=== PATIENT | female | born 1955 | race Caucasian/White ===

== ENCOUNTER 2020-03-25 15:46 | Outpatient (REF) | payer MEDICARE, MEDICAID, SELFPAY | END 2020-03-25 15:47 | disposition home or self-care (01) | LOC: HO.LAB 15:46 | PROVIDERS: PCP Internal Medicine Geriatric Medicine; Visit Provider Internal Medicine | DX: Z20.828 Contact with and (suspected) exposure to other viral communicable diseases (principal) | CPT/HCPCS: 36415; 87635 ==

== ENCOUNTER 2020-04-13 00:46 | Emergency (ER) | payer MEDICARE, MEDICAID, SELFPAY ==
--- NOTE | 2020-04-13 01:05 | ECG_ITS ---
Test Reason : HIGH PAT Blood Pressure : / mmHG Vent. Rate : 088 BPM Atrial Rate : 088 BPM P-R Int : 130 ms QRS Dur : 054 ms QT Int : 360 ms P-R-T Axes : 081 053 058 degrees QTc Int : 435 ms Normal sinus rhythm Low voltage QRS Otherwise normal ECG When compared with ECG of 11-JUL-2019 16:42, Vent. rate has increased BY 30 BPM Referred By: Rosanne Rosas Electronically Signed By:KHURRAM HUIZAR MD
[2020-04-13 01:07] VITALS: BP 145/73; PULSE 86; RESP 18; TEMP 36.9; O2SAT 99; BMI 26.7
--- NOTE | 2020-04-13 01:55 | ED_ITS ---
HPI - General Adult General Chief complaint: General Medical Stated complaint: ABNORMAL LABS Time Seen by Provider: 04/13/20 01:05 Source: patient Mode of arrival: ambulatory Limitations: no limitations History of Present Illness HPI narrative: had a routine labs today and was called to come to the hospital for high potassium, patient otherwise has no symptoms. Related Data Previous Rx's Medication Instructions Recorded dulaglutide 1.5 mg/0.5 mL 1.5 mg SUBCUT QWEEK 30 Days #2.5 ml 03/27/20 subcutaneous pen injector metformin 500 mg tablet,extended 500 mg PO BID 30 Days #60 tab 03/27/20 release 24 hr atorvastatin 40 mg tablet 40 mg PO BEDTIME 90 Days #90 tab 04/05/20 Allergies Allergy/AdvReac Type Severity Reaction Status Date / Time atorvastatin [Lipitor] Allergy Unknown Verified 07/28/19 00:00 citalopram [Celexa] Allergy Unknown Verified 07/28/19 00:00 From CELEXA Allergy Severe DIFFICULTY Uncoded 03/07/20 17:11 BREATHING From LIPITOR Allergy Intermediate HEADACHES Uncoded 03/07/20 17:11 Review of Systems Review of Systems: all other systems are reviewed and are negative Constitutional: Reports as per HPI and Reports no additional constitutional complaints Eyes: Reports as per HPI and Reports no additional eye complaints Reports system reviewed and no additional complaints, except as documented Cardiovascular: Reports as per HPI and Reports no additional cardiovascular complaints Respiratory: Reports as per HPI and Reports no additional respiratory complaints Gastrointestinal: Reports as per HPI and Reports no additional gastrointestinal complaints Genitourinary: Reports no additional female genitourinary complaints Musculoskeletal: Reports no additional musculoskeletal complaints Skin/Breast: Reports system reviewed and no additional complaints, except as docu Psychiatric: Reports no additional psychiatric complaints Endocrine: Reports no additional endocrine complaints Hematologic/Lymphatic: Reports no additional hematologic/lymphatic complaints Allergic/Immunologic: Reports no additional allergic/immunologic complaints Reports system reviewed and no additional complaints, except as documented and Reports Abnormal speech present [facility] Past Medical History Medical History Diabetes type 2, uncontrolled Dyslipidemia Social History Social History Advance Directives: No Advance Directives Information Provided: No Physical Exam Vital Signs: Vital Signs: Vital Signs Temp Pulse Resp BP Pulse Ox 04/13/20 04:44 98.0 F 99 16 132/81 99 04/13/20 01:07 98.5 F 86 18 145/73 H 99 Body Mass Index 26.7 vital signs have been reviewed as normal and appeared to be correct. hypertensive. Heart rate normal. Respiration rate normal. Temperature normal. Oxygen saturation normal. Appearance: Alert. Oriented X3. No acute distress. Head: Normal external exam. Normocephalic. Atraumatic. No Kumar signs noted. No raccoon eyes noted Eyes: PERRLA. EOMI. Conjunctiva and sclera normal. Eyelids normal. ENT: EAC normal. TM's Normal. Pharynx normal. Uvula midline. Moist mucous membranes. No trismus noted. No drooling noted. No muffled voice noted. Neck: Normal inspection. Neck supple. FROM. No adenopathy. Thyroid Normal. No meningeal signs. No neck mass noted. CVS: Normal heart rate and rhythm. Heart sound normal. No murmurs noted. Pulses normal throughout. Respiratory: No respiratory distress. Painless inspiration. Breath sounds normal. No wheezes/rales/rhonchi noted. Chest nontender. No accessory muscle usage noted or decreased air movement noted. Abdomen: Soft and nontender. Bowel sounds normal in all 4 quadrants. No distention noted. No organomegaly noted. No visible injury noted. Back: No CVA tenderness. Full range of motion noted. Skin: Skin warm and dry. Normal skin color. Normal skin turgor. No rashes/lesions/lacerations noted. Extremities: No lower extremity edema. Extremities exhibit normal range of motion. Extremities nontender. Neuro: Oriented X 3. No motor deficit. No sensory deficit. Reflexes normal. Course Course Course Narrative: 65 years old female with history of diabetes, and lupus presented with abnormal high potassium value in her routine blood workup. Patient otherwise has no symptoms. Recheck potassium, check EKG, cardiac monitoring, reassessment. Medical Decision Making MDM Narrative Medical decision making narrative: Assessment and plan. 65-year-old female presented with hyperkalemia. 1. no EKG changes indicated for hyperkalemia. 2. patient was given Kayexalate and 10 units of insulin ( patient also found to be hyperglycemic ) had repeat labs with normal value potassium. Patient was instructed to see her primary doctor in 2 days and recheck and potassium in 3-4 days. 3. insulin pump was deactivated while the patient in the ED patient was instructed to reactivate her palm for discharge. Lab Data Result diagrams: 04/13/20 04:43 04/13/20 04:43 Labs: Lab Results 04/13/20 04/13/20 04/13/20 Range/Units 01:27 03:28 04:43 WBC 9.5 (4.8-10.8) X10*3/uL RBC 4.58 (4.20-5.50) X10*6/uL Hgb 13.1 (12.0-16.0) g/dl Hct 40.1 (37-47) % MCV 87.6 (80-98) fL MCH 28.6 (27.0-33.0) pg MCHC 32.7 (31.0-35.0) g/dl RDW 14.1 (11.0-16.0) % Plt Count 248 (160-400) X10*3/uL MPV 11.6 (9.4-12.3) fL Immature Gran % (Auto) 0.4 (0.0-0.4) % Neut % (Auto) 47.8 (45-73) % Lymph % (Auto) 40.1 H (20-40) % [place] % (Auto) 9.3 (2-11) % Eos % (Auto) 1.4 (0-4) % Baso % (Auto) 1.0 (0-2) % Lymph # (Auto) 3.8 (1.2-4.9) X10*3/uL [place] # (Auto) 0.9 (0.1-1.2) X10*3/uL Eos # (Auto) 0.1 (0.0-0.4) X10*3/uL Baso # (Auto) 0.1 (0.0-0.2) X10*3/uL Abs Immat Gran (auto) 0.04 H (0.00-0.03) X10*3/uL Absolute Neuts (auto) 4.6 (2.0-8.3) X10*3/uL Absolute Nucleated RBC 0.000 (0.0-0.012) X10*3/uL Nucleated RBC % (auto) 0.0 (0.0-0.2) /100WBC Sodium 135 (135-145) mmol/L Potassium 5.9 H (3.3-5.1) mmol/l Chloride 99 (96-108) mmol/L Carbon Dioxide 26 (22-29) mmol/L Anion Gap 16 (12-20) BUN 17 H (9-16) mg/dL Creatinine 1.39 (0.5-1.4) mg/dL Estim Creat Clear Calc 33.7 Estimated GFR 38 Random Glucose 509 H* (60-115) mg/dL Calcium 9.8 (8.4-10.2) mg/dL Magnesium 1.9 (1.6-2.6) mg/dL Total Bilirubin 0.3 (0.0-1.0) mg/dL Direct Bilirubin < 0.2 (0.0-0.5) mg/dL AST 14 (5-31) U/L ALT 13 (0-31) U/L Alkaline Phosphatase 78 (39-117) U/L Total Protein 6.5 (6.5-8.0) g/dL Albumin 3.9 (3.5-5.0) g/dL Lipase 43 (8-78) U/L Urine Color YELLOW Urine Appearance CLEAR Urine pH 6.0 (5.0-8.0) Ur Specific [place] 1.015 (1.005-1.025) Urine Protein NEG (NEG-TRACE) MG/DL Urine Glucose (UA) >=1000 H (NEG) MG/DL Urine Ketones NEG (NEG) MG/DL Urine Blood NEG (NEG) Urine Nitrite NEG (NEG) Ur Leukocyte Esterase TRACE H (NEG) Urine RBC 1-4 (0) /HPF Urine WBC 5-9 H (0-4) /HPF Ur Squamous Epith Cells 1+ /LPF Urine Bacteria 2+ /LPF 04/13/20 Range/Units 04:43 WBC (4.8-10.8) X10*3/uL RBC (4.20-5.50) X10*6/uL Hgb (12.0-16.0) g/dl Hct (37-47) % MCV (80-98) fL MCH (27.0-33.0) pg MCHC (31.0-35.0) g/dl RDW (11.0-16.0) % Plt Count (160-400) X10*3/uL MPV (9.4-12.3) fL Immature Gran % (Auto) (0.0-0.4) % Neut % (Auto) (45-73) % Lymph % (Auto) (20-40) % [place] % (Auto) (2-11) % Eos % (Auto) (0-4) % Baso % (Auto) (0-2) % Lymph # (Auto) (1.2-4.9) X10*3/uL [place] # (Auto) (0.1-1.2) X10*3/uL Eos # (Auto) (0.0-0.4) X10*3/uL Baso # (Auto) (0.0-0.2) X10*3/uL Abs Immat Gran (auto) (0.00-0.03) X10*3/uL Absolute Neuts (auto) (2.0-8.3) X10*3/uL Absolute Nucleated RBC (0.0-0.012) X10*3/uL Nucleated RBC % (auto) (0.0-0.2) /100WBC Sodium 141 (135-145) mmol/L Potassium 4.8 (3.3-5.1) mmol/l Chloride 105 (96-108) mmol/L Carbon Dioxide 26 (22-29) mmol/L Anion Gap 15 (12-20) BUN 16 (9-16) mg/dL Creatinine 1.27 (0.5-1.4) mg/dL Estim Creat Clear Calc 36.8 Estimated GFR 42 Random Glucose 206 H D (60-115) mg/dL Calcium 10.2 (8.4-10.2) mg/dL Magnesium (1.6-2.6) mg/dL Total Bilirubin (0.0-1.0) mg/dL Direct Bilirubin (0.0-0.5) mg/dL AST (5-31) U/L ALT (0-31) U/L Alkaline Phosphatase (39-117) U/L Total Protein (6.5-8.0) g/dL Albumin (3.5-5.0) g/dL Lipase (8-78) U/L Urine Color Urine Appearance Urine pH (5.0-8.0) Ur Specific [place] (1.005-1.025) Urine Protein (NEG-TRACE) MG/DL Urine Glucose (UA) (NEG) MG/DL Urine Ketones (NEG) MG/DL Urine Blood (NEG) Urine Nitrite (NEG) Ur Leukocyte Esterase (NEG) Urine RBC (0) /HPF Urine WBC (0-4) /HPF Ur Squamous Epith Cells /LPF Urine Bacteria /LPF ECG Data Interpretation: normal sinus rhythm at 88 beats per minutes, normal axis deviation, normal intervals, no ST -teach anus, no T-wave changes in particular no peaked T-wave indicated for hyperkalemia. Discharge Plan Discharge Clinical Impression: Acute hyperkalemia, Acute hyperglycemia Patient Disposition: Home, Self-Care Instructions: Hyperkalemia (ED) Additional Instructions: need to repeat potassium in 2-3 days. Prescriptions: No Action Trulicity 1.5 mg/0.5 mL pen injector 1.5 mg subcut QWEEK 30 Days Qty: 2.5 RF: 2 metformin 500 mg tablet extended release 24 hr 500 mg PO BID 30 Days Qty: 60 RF: 2 atorvastatin 40 mg tablet 40 mg PO BEDTIME 90 Days Qty: 90 RF: 1 Referrals: Name,MD Rob [Primary Care Provider] - 2 days ( Need to repeat potassium serum in 2-3 days.)
[2020-04-13 02:34] LABS: Alanine Aminotransferase 13 U/L (0-31); Albumin Level 3.9 g/dL (3.5-5.0); Alkaline Phosphatase 78 U/L (39-117); Anion Gap 16 (12-20); Aspartate Amino Transferase 14 U/L (5-31); Bilirubin Direct < 0.2 mg/dL (0.0-0.5); Bilirubin Total 0.3 mg/dL (0.0-1.0); Blood Urea Nitrogen 17 mg/dL (9-16); Calcium 9.8 mg/dL (8.4-10.2); Carbon Dioxide 26 mmol/L (22-29); Chloride 99 mmol/L (96-108); Creatinine Clr Calc Pharmacy 33.7; Estimated Glomerular Filt Rate 38; Glucose Random 509 mg/dL (60-115); Lipase 43 U/L (8-78); Magnesium 1.9 mg/dL (1.6-2.6); Potassium 5.9 mmol/l (3.3-5.1); Sodium 135 mmol/L (135-145); Total Protein 6.5 g/dL (6.5-8.0)
[2020-04-13] MEDS: Insulin Regular, Human 100 UNIT/ML 3 ML VIAL 10 UNIT IVPUSH (03:23)
[2020-04-13] MEDS: Sodium Polystyrene Sulfon/Sorb 15 GM/60 ML ORAL.SUSP 30 GM PO (03:23)
[2020-04-13] MEDS: 0.9 % Sodium Chloride 500 ML 1000 ML IV (03:24)
[2020-04-13 03:43] LABS: Glucose Urine UA >=1000 MG/DL (NEG); Leukocyte Esterase Urine TRACE (NEG); Nitrite Urine NEG (NEG); Specific Gravity - Urine 1.015 (1.005-1.025); Urine Blood NEG (NEG); Urine Ketones NEG (NEG); Urine Protein NEG (NEG-TRACE)
[2020-04-13 03:55] LABS: Appearance Urine CLEAR; Color Urine YELLOW
[2020-04-13 04:07] LABS: Bacteria Urine 2+ /LPF; Squamous Epithelial Cell Urine 1+ /LPF
[2020-04-13 04:44] VITALS: BP 132/81; PULSE 99; RESP 16; TEMP 36.7; O2SAT 99
[2020-04-13 04:50] LABS: MANUAL DIFF FLAG NO
[2020-04-13 04:51] LABS: Basophils Absolute Auto 0.1 X10*3/uL (0.0-0.2); Eosinophils Absolute Auto 0.1 X10*3/uL (0.0-0.4); Eosinophils Percent Auto 1.4 % (0-4); Hematocrit 40.1 % (37-47); Hemoglobin 13.1 g/dl (12.0-16.0); Imm Gran Abs Auto 0.04 X10*3/uL (0.00-0.03); Imm Gran Pct Auto 0.4 % (0.0-0.4); Lymphocytes Absolute Auto 3.8 X10*3/uL (1.2-4.9); Lymphocytes Percent Auto 40.1 % (20-40); Mean Corpuscular HGB Conc 32.7 g/dl (31.0-35.0); Mean Corpuscular Hemoglobin 28.6 pg (27.0-33.0); Mean Corpuscular Volume 87.6 fL (80-98); Mean Platelet Volume 11.6 fL (9.4-12.3); Monocytes Absolute Auto 0.9 X10*3/uL (0.1-1.2); Monocytes Percent Auto 9.3 % (2-11); Neutrophils Absolute Auto 4.6 X10*3/uL (2.0-8.3); Neutrophils Percent Auto 47.8 % (45-73); Platelet Count 248 X10*3/uL (160-400); Red Blood Count 4.58 X10*6/uL (4.20-5.50); Red Cell Distribution Width 14.1 % (11.0-16.0); White Blood Count 9.5 X10*3/uL (4.8-10.8)
[2020-04-13 05:20] LABS: Anion Gap 15 (12-20); Blood Urea Nitrogen 16 mg/dL (9-16); Calcium 10.2 mg/dL (8.4-10.2); Carbon Dioxide 26 mmol/L (22-29); Chloride 105 mmol/L (96-108); Creatinine Clr Calc Pharmacy 36.8; Estimated Glomerular Filt Rate 42; Glucose Random 206 mg/dL (60-115); Potassium 4.8 mmol/l (3.3-5.1); Sodium 141 mmol/L (135-145)
--- NOTE | 2020-04-13 05:39 | PC.NURSE ---
Pt has made 2-3 trips to the bathroom, reports diarrhea.
== END 2020-04-13 08:33 | disposition home or self-care (01) ==
PROVIDERS: Emergency Provider Emergency Medicine; PCP Internal Medicine Geriatric Medicine
DX: E87.5 Hyperkalemia (principal); E11.65 Type 2 diabetes mellitus with hyperglycemia; R79.89 Other specified abnormal findings of blood chemistry; Z79.899 Other long term (current) drug therapy; Z79.4 Long term (current) use of insulin
CPT/HCPCS: 36415; 80048; 80076; 81001; 83690; 83735; 85025; 87077; 87086; 87186; 93005; 96374; 99283; 99284

== ENCOUNTER → 2020-05-28 11:18 | Outpatient (BNVA) | payer MEDICARE, MEDICAID, SELFPAY | PROVIDERS: Visit Provider Internal Medicine Endocrinology, Diabetes & Metabolism | DX: Z13.89 Encounter for screening for other disorder (principal) | CPT/HCPCS: Q3014 ==

== ENCOUNTER → 2020-07-03 09:21 | Outpatient (BNVA) | payer MEDICARE, MEDICAID, SELFPAY | PROVIDERS: Visit Provider Internal Medicine Endocrinology, Diabetes & Metabolism | DX: Z13.89 Encounter for screening for other disorder (principal) | CPT/HCPCS: Q3014 ==

== ENCOUNTER → 2020-09-09 08:30 | Outpatient (BNVA) | payer MEDICARE, MEDICAID, SELFPAY | PROVIDERS: PCP Internal Medicine Geriatric Medicine; Visit Provider Internal Medicine Endocrinology, Diabetes & Metabolism | DX: E11.65 Type 2 diabetes mellitus with hyperglycemia (principal); E11.42 Type 2 diabetes mellitus with diabetic polyneuropathy; Z79.4 Long term (current) use of insulin; E78.5 Hyperlipidemia, unspecified; E53.8 Deficiency of other specified B group vitamins; E55.9 Vitamin D deficiency, unspecified; I10 Essential (primary) hypertension | CPT/HCPCS: 80053; 80061; 82607; 82947; 83721; 84439; 99212 ==

== ENCOUNTER 2020-09-09 09:27 | Outpatient (REF) | payer MEDICARE, MEDICAID, SELFPAY ==
[2020-09-09 14:28] LABS: Alanine Aminotransferase 10 U/L (0-31); Albumin Level 4.2 g/dL (3.5-5.0); Alkaline Phosphatase 64 U/L (39-117); Anion Gap 18 (12-20); Aspartate Amino Transferase 16 U/L (5-31); Bilirubin Total 0.3 mg/dL (0.0-1.0); Blood Urea Nitrogen 13 mg/dL (9-16); Calcium 9.3 mg/dL (8.4-10.2); Carbon Dioxide 23 mmol/L (22-29); Chloride 105 mmol/L (96-108); Cholesterol 264 mg/dL; Estimated Glomerular Filt Rate 43; Glucose Fasting 238 mg/dL (60-99); HDL Cholesterol 54 mg/dL; LDL Cholesterol Calculated 188 mg/dl; Potassium 5.6 mmol/L (3.3-5.1); Sodium 140 mmol/L (135-145); Total Protein 6.9 g/dL (6.5-8.0); Triglycerides 112 mg/dL
[2020-09-09 14:37] LABS: Creatinine Urine 113.11 mg/dL; Microalbum/Creatinine Ratio Ur 5.3 ug/mg cr
[2020-09-09 14:50] LABS: Free T4 (Free Thyroxine) 0.86 ng/dL (0.71-1.85)
[2020-09-09 14:52] LABS: Vitamin B12 210 pg/mL (200-900)
[2020-09-10 06:47] LABS: LDL Cholesterol Direct 195 mg/dL (<100)
== END 2020-09-09 09:28 | disposition home or self-care (01) ==
LOC: HO.10HDL 09:27
PROVIDERS: Visit Provider Internal Medicine Endocrinology, Diabetes & Metabolism
DX: E11.22 Type 2 diabetes mellitus with diabetic chronic kidney disease (principal); E11.65 Type 2 diabetes mellitus with hyperglycemia; N18.30 Chronic kidney disease, stage 3 unspecified
CPT/HCPCS: 36415; 80053; 80061; 82043; 82607; 83721; 84439; 84443

== ENCOUNTER 2020-09-24 15:22 | Outpatient (REF) | payer MEDICARE, MEDICAID, SELFPAY ==
[2020-09-24 17:21] LABS: Anion Gap 16 (12-20); Blood Urea Nitrogen 19 mg/dL (9-16); Calcium 9.5 mg/dL (8.4-10.2); Carbon Dioxide 25 mmol/L (22-29); Chloride 100 mmol/L (96-108); Estimated Glomerular Filt Rate 43; Glucose Random 353 mg/dL (60-115); Potassium 5.4 mmol/L (3.3-5.1); Sodium 136 mmol/L (135-145)
== END 2020-09-24 15:23 | disposition home or self-care (01) ==
LOC: HO.LAB 15:22
PROVIDERS: PCP Internal Medicine Geriatric Medicine; Visit Provider Internal Medicine Endocrinology, Diabetes & Metabolism
DX: N18.30 Chronic kidney disease, stage 3 unspecified (principal)
CPT/HCPCS: 36415; 80048

== ENCOUNTER → 2020-09-25 07:36 | Outpatient (BNVA) | payer MEDICARE, MEDICAID, SELFPAY | PROVIDERS: PCP Internal Medicine Geriatric Medicine; Visit Provider Internal Medicine Endocrinology, Diabetes & Metabolism | DX: Z13.89 Encounter for screening for other disorder (principal) | CPT/HCPCS: Q3014 ==

== ENCOUNTER → 2020-12-26 11:20 | Outpatient (BNVA) | payer MEDICARE, MEDICAID, SELFPAY | PROVIDERS: PCP Internal Medicine Geriatric Medicine; Visit Provider Internal Medicine Endocrinology, Diabetes & Metabolism | DX: Z13.89 Encounter for screening for other disorder (principal) | CPT/HCPCS: 82947; 99212 ==

== ENCOUNTER 2020-12-26 12:27 | Emergency (ER) | payer MEDICARE, MEDICAID, SELFPAY ==
--- NOTE | ~2020-12-26 | XR_ITS ---
EXAMINATION: XR CHEST CLINICAL INFORMATION: Hyperglycemia COMPARISON: February 23, 2017 TECHNIQUE: AP portable view of the chest was obtained. FINDINGS: No significant abnormality is noted involving the heart, lungs, mediastinum, bony thorax or soft tissues. There appear to be some calcified right paratracheal lymph nodes. XR/XR chest 1V IMPRESSION: No acute disease.
[2020-12-26 12:49] VITALS: BP 136/69; PULSE 81; RESP 19; TEMP 36.6; O2SAT 98; BMI 26.5
--- NOTE | 2020-12-26 13:05 | ECG_ITS ---
Test Reason : GEN MED Blood Pressure : / mmHG Vent. Rate : 078 BPM Atrial Rate : 078 BPM P-R Int : 118 ms QRS Dur : 068 ms QT Int : 408 ms P-R-T Axes : 070 050 066 degrees QTc Int : 465 ms Normal sinus rhythm Normal ECG When compared with ECG of 13-APR-2020 01:20, No significant change was found Referred By: Lucila Wise Electronically Signed By:SHERRILL ARROYO
[2020-12-26] MEDS: 0.9 % Sodium Chloride 1,000 ML 999 ML IVCONT ×2 (13:20→14:04)
[2020-12-26 13:36] LABS: Glucose, Whole Blood > 600 mg/dL (60-115)
[2020-12-26 13:37] LABS: MANUAL DIFF FLAG NO
[2020-12-26 13:38] LABS: Basophils Absolute Auto 0.1 X10*3/uL (0.0-0.2); Basophils Percent Auto 0.9 % (0-2); Eosinophils Absolute Auto 0.3 X10*3/uL (0.0-0.4); Eosinophils Percent Auto 2.8 % (0-4); Hematocrit 40.3 % (37-47); Hemoglobin 13.7 g/dl (12.0-16.0); Imm Gran Abs Auto 0.03 X10*3/uL (0.00-0.03); Imm Gran Pct Auto 0.3 % (0.0-0.4); Lymphocytes Absolute Auto 2.5 X10*3/uL (1.2-4.9); Lymphocytes Percent Auto 23.7 % (20-40); Mean Corpuscular Hemoglobin 29.2 pg (27.0-33.0); Mean Corpuscular Volume 85.9 fL (80-98); Mean Platelet Volume 12.2 fL (9.4-12.3); Monocytes Absolute Auto 0.6 X10*3/uL (0.1-1.2); Neutrophils Absolute Auto 7.1 X10*3/uL (2.0-8.3); Neutrophils Percent Auto 66.3 % (45-73); Platelet Count 220 X10*3/uL (160-400); Red Blood Count 4.69 X10*6/uL (4.20-5.50); Red Cell Distribution Width 11.9 % (11.0-16.0); White Blood Count 10.6 X10*3/uL (4.8-10.8)
[2020-12-26 13:43] VITALS: BP 138/75; PULSE 77; RESP 16; O2SAT 98
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
[2020-12-26 13:58] LABS: Acetone, serum QL Negative (Negative)
[2020-12-26] MEDS: traMADoL HCL 50 MG TABLET PO (14:03)
[2020-12-26] MEDS: Acetaminophen 325 MG TABLET 975 MG PO (14:03)
[2020-12-26 14:07] LABS: Magnesium 2.1 mg/dL (1.6-2.6)
[2020-12-26 14:14] LABS: Alanine Aminotransferase 10 U/L (0-31); Albumin Level 4.4 g/dL (3.5-5.0); Alkaline Phosphatase 97 U/L (39-117); Anion Gap 20 (12-20); Aspartate Amino Transferase 12 U/L (5-31); Bilirubin Total 0.3 mg/dL (0.0-1.0); Blood Urea Nitrogen 23 mg/dL (9-16); Calcium 10.5 mg/dL (8.4-10.2); Carbon Dioxide 24 mmol/L (22-29); Chloride 90 mmol/L (96-108); Creatinine Clr Calc Pharmacy 26.4; Estimated Glomerular Filt Rate 29; Glucose Random 662 mg/dL (60-115); Potassium 4.7 mmol/L (3.3-5.1); Sodium 129 mmol/L (135-145); Total Protein 7.7 g/dL (6.5-8.0)
[2020-12-26] MEDS: Insulin Regular, Human 100 UNIT/ML 3 ML VIAL 12 UNIT IVPUSH (14:58)
[2020-12-26 15:20] VITALS: BP 125/76; PULSE 86; RESP 16; O2SAT 97
[2020-12-26 15:26] LABS: Glucose, Whole Blood 417 mg/dL (60-115)
[2020-12-26 16:00] VITALS: BP 138/72; PULSE 75; RESP 16; TEMP 36.6; O2SAT 99
[2020-12-26 17:02] LABS: Glucose Urine UA >=1000 MG/DL (NEG); Leukocyte Esterase Urine 1+ (NEG); Nitrite Urine POS (NEG); UACC Culture Trigger YES; Urine Blood 2+ (NEG); Urine Ketones NEG (NEG); Urine Protein NEG (NEG-TRACE)
[2020-12-26 17:03] LABS: Appearance Urine HAZY; Color Urine YELLOW
[2020-12-26 17:31] LABS: Glucose, Whole Blood 199 mg/dL (60-115)
[2020-12-26 17:33] LABS: Bacteria Urine 2+ /LPF; Mucus Urine 2+ /LPF; Squamous Epithelial Cell Urine 2+ /LPF; WBC Urine 50-75 /HPF (0-4)
[2020-12-26 17:39] LABS: Anion Gap 14 (12-20); Blood Urea Nitrogen 20 mg/dL (9-16); Calcium 8.6 mg/dL (8.4-10.2); Carbon Dioxide 24 mmol/L (22-29); Chloride 103 mmol/L (96-108); Creatinine Clr Calc Pharmacy 39.4; Estimated Glomerular Filt Rate 46; Glucose Random 236 mg/dL (60-115); Potassium 3.7 mmol/L (3.3-5.1); Sodium 137 mmol/L (135-145)
[2020-12-26 17:57] VITALS: BP 152/90; PULSE 81; RESP 16; TEMP 36.6; O2SAT 99
[2020-12-26 18:02] LABS: Glucose, Whole Blood 240 mg/dL (60-115)
== END 2020-12-26 18:15 | disposition home or self-care (01) ==
PROVIDERS: Physician Assistant Medical; Psychiatry & Neurology Psychiatry; Emergency Provider Emergency Medicine; PCP Internal Medicine Geriatric Medicine
DX: E11.65 Type 2 diabetes mellitus with hyperglycemia (principal); N17.9 Acute kidney failure, unspecified; E87.1 Hypo-osmolality and hyponatremia; I12.9 Hypertensive chronic kidney disease with stage 1 through stage 4 chronic kidney disease, or unspecified chronic kidney disease; E11.22 Type 2 diabetes mellitus with diabetic chronic kidney disease; N18.30 Chronic kidney disease, stage 3 unspecified; J44.9 Chronic obstructive pulmonary disease, unspecified; Z79.82 Long term (current) use of aspirin; Z79.4 Long term (current) use of insulin; Z79.899 Other long term (current) drug therapy
CPT/HCPCS: 36415; 71045; 80048; 80053; 81001; 81003; 82009; 82947; 83735; 85025; 85610; 87086; 87088; 87186; 93005; 96361; 96374; 99212; 99285; 99291

== ENCOUNTER 2021-12-20 10:48 | Outpatient (REF) | payer OTHER, MEDICAID, SELFPAY ==
[2021-12-20 11:51] LABS: Anion Gap 13 (12-20); Blood Urea Nitrogen 18 mg/dL (9-16); Carbon Dioxide 29 mmol/L (22-29); Chloride 101 mmol/L (96-108); Cholesterol 295 mg/dL; Estimated Glomerular Filt Rate 49; Glucose Random 230 mg/dL (60-115); HDL Cholesterol 53 mg/dL; LDL Cholesterol Calculated 213 mg/dl; Potassium 5.5 mmol/L (3.3-5.1); Sodium 137 mmol/L (135-145); Triglycerides 145 mg/dL
[2021-12-20 12:13] LABS: Microalbumin Urine < 5.0 mg/L
== END 2021-12-20 10:49 | disposition home or self-care (01) ==
LOC: HO.LAB 10:48
PROVIDERS: PCP Internal Medicine Geriatric Medicine; Visit Provider Internal Medicine Endocrinology, Diabetes & Metabolism
DX: E11.65 Type 2 diabetes mellitus with hyperglycemia (principal)
CPT/HCPCS: 36415; 80048; 80061; 82043

== ENCOUNTER 2021-12-23 15:01 | Outpatient (REF) | payer OTHER, SELFPAY ==
[2021-12-23 16:04] LABS: Cholesterol 289 mg/dL; HDL Cholesterol 52 mg/dL; LDL Cholesterol Calculated 174 mg/dl; Potassium 5.1 mmol/L (3.3-5.1); Triglycerides 318 mg/dL
[2021-12-25 01:16] LABS: LDL Cholesterol Direct 201 mg/dL (<100)
== END 2021-12-23 15:02 | disposition home or self-care (01) ==
LOC: HO.LAB 15:01
PROVIDERS: Internal Medicine Endocrinology, Diabetes & Metabolism; PCP Internal Medicine Geriatric Medicine; Visit Provider Internal Medicine Endocrinology, Diabetes & Metabolism
DX: E78.5 Hyperlipidemia, unspecified (principal); N18.30 Chronic kidney disease, stage 3 unspecified
CPT/HCPCS: 36415; 80061; 83721; 84132

== ENCOUNTER → 2021-12-24 14:05 | Outpatient (BNVA) | payer OTHER, MEDICAID, SELFPAY | PROVIDERS: PCP Internal Medicine Geriatric Medicine; Visit Provider Internal Medicine Endocrinology, Diabetes & Metabolism | DX: E11.65 Type 2 diabetes mellitus with hyperglycemia (principal); E11.22 Type 2 diabetes mellitus with diabetic chronic kidney disease; N18.30 Chronic kidney disease, stage 3 unspecified; E11.42 Type 2 diabetes mellitus with diabetic polyneuropathy; Z79.4 Long term (current) use of insulin | CPT/HCPCS: 82947; 99212 ==

== ENCOUNTER → 2021-12-25 09:32 | Outpatient (BNVA) | payer OTHER, MEDICAID, SELFPAY | PROVIDERS: PCP Internal Medicine Geriatric Medicine; Visit Provider Dietitian, Registered | DX: E11.65 Type 2 diabetes mellitus with hyperglycemia (principal); Z71.3 Dietary counseling and surveillance | CPT/HCPCS: 97802 ==

== ENCOUNTER 2021-12-30 21:26 | Emergency (ER) | payer OTHER, MEDICAID, SELFPAY ==
--- NOTE | ~2021-12-30 | XR_ITS ---
EXAMINATION: XR RIBS, RIGHT CLINICAL INFORMATION: Fall with chest pain COMPARISON: Chest radiograph 10:21 PM 12/30/2021 TECHNIQUE: Single view chest with 3 additional views of the right ribs were obtained. FINDINGS: Lungs are clear. No consolidation, pneumothorax, or pleural effusion. The cardiomediastinal silhouette and pulmonary vasculature are normal. Degenerative changes are present lumbar spine. Ribs are intact. No fractures are identified. XR/XR ribs RT min 3V w CXR1V IMPRESSION: No acute intrathoracic disease. No rib fractures are seen.
--- NOTE | ~2021-12-30 | XR_ITS ---
EXAMINATION: XR WRIST, RIGHT CLINICAL INFORMATION: Fall COMPARISON: Right hand radiographs of 07/11/2019 TECHNIQUE: PA, lateral, and oblique views of the right wrist. FINDINGS: Healed fracture deformity of the distal radius, unchanged. No acute fracture or dislocation. Joint spaces at the wrist are maintained. Mild degenerative change at the first CMC joint with subchondral sclerosis and minimal osteophyte formation. Minimal soft tissue swelling along the dorsal wrist. XR/XR wrist RT 2V IMPRESSION: 1. No acute fracture or dislocation identified. 2. No fracture deformity of the distal radius.
--- NOTE | ~2021-12-30 | XR_ITS ---
EXAMINATION: XR CHEST CLINICAL INFORMATION: Fall COMPARISON: Chest x-ray 12/26/2020 TECHNIQUE: 2 views of the chest were obtained. FINDINGS: The lungs are clear. No airspace consolidation, pleural effusion, or pneumothorax. The cardiomediastinal silhouette is within normal limits. Small calcified right paratracheal lymph nodes redemonstrated. No acute osseous injury. XR/XR chest 2V IMPRESSION: No acute pulmonary process.
[2021-12-30 22:37] VITALS: BP 138/73; PULSE 101; RESP 20; TEMP 36.3; O2SAT 98; BMI 26.5
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
[2021-12-31] MEDS: traMADoL HCL 50 MG TABLET PO (00:52)
--- NOTE | 2021-12-31 00:53 | PC.NURSE ---
medicated per provider order.
== END 2021-12-31 01:03 | disposition home or self-care (01) ==
PROVIDERS: Emergency Provider Internal Medicine; PCP Internal Medicine Geriatric Medicine
DX: S69.91XA Unspecified injury of right wrist, hand and finger(s), initial encounter (principal); S20.211A Contusion of right front wall of thorax, initial encounter; R07.89 Other chest pain; I12.9 Hypertensive chronic kidney disease with stage 1 through stage 4 chronic kidney disease, or unspecified chronic kidney disease; E11.22 Type 2 diabetes mellitus with diabetic chronic kidney disease; N18.30 Chronic kidney disease, stage 3 unspecified; W01.0XXA Fall on same level from slipping, tripping and stumbling without subsequent striking against object, initial encounter; Y93.9 Activity, unspecified; Y92.9 Unspecified place or not applicable; Y99.9 Unspecified external cause status; Z79.4 Long term (current) use of insulin; Z79.899 Other long term (current) drug therapy; F17.200 Nicotine dependence, unspecified, uncomplicated; Z71.6 Tobacco abuse counseling
CPT/HCPCS: 29125; 71046; 71101; 71111; 73100; 99283

== ENCOUNTER → 2022-01-02 11:17 | Outpatient (BNVA) | payer MEDICARE, MEDICAID, SELFPAY | PROVIDERS: PCP Internal Medicine Geriatric Medicine; Visit Provider Orthopaedic Surgery | DX: M25.531 Pain in right wrist (principal) | CPT/HCPCS: 99202 ==

== ENCOUNTER 2022-01-17 01:26 | Emergency (ER) | payer OTHER, MEDICAID, SELFPAY ==
--- NOTE | ~2022-01-17 | XR_ITS ---
EXAMINATION: XR CHEST CLINICAL INFORMATION: Chest pain and shortness breath COMPARISON: 12/30/2021 TECHNIQUE: Frontal view of the chest was obtained. FINDINGS: Normal symmetric lung volumes. No parenchymal consolidation. No pleural effusion. No pneumothorax. Cardiomediastinal silhouette and pulmonary vascularity are within normal limits. Calcified right paratracheal lymph nodes redemonstrated. No acute osseous abnormalities. XR/XR chest 1V IMPRESSION: No acute findings
--- NOTE | 2022-01-17 01:28 | ECG_ITS ---
Test Reason : CHEST PAIN Blood Pressure : / mmHG Vent. Rate : 098 BPM Atrial Rate : 098 BPM P-R Int : 116 ms QRS Dur : 064 ms QT Int : 342 ms P-R-T Axes : 070 050 062 degrees QTc Int : 436 ms Normal sinus rhythm Low voltage QRS Borderline ECG No significant changes when compared with the previous EKG of 26 december 2020 Referred By: Generic ED Physician Electronically Signed By:SHERRILL ARROYO
[2022-01-17 01:32] VITALS: BP 128/68; PULSE 93; RESP 16; TEMP 37.3; O2SAT 99; BMI 26.5
[2022-01-17 01:46] LABS: Basophils Absolute Auto 0.1 X10*3/uL (0.0-0.2); Basophils Percent Auto 0.8 % (0-2); Eosinophils Absolute Auto 0.3 X10*3/uL (0.0-0.4); Eosinophils Percent Auto 2.4 % (0-4); Hematocrit 36.9 % (37.0-47.0); Imm Gran Abs Auto 0.03 X10*3/uL (0.00-0.03); Imm Gran Pct Auto 0.3 % (0.0-0.4); Lymphocytes Absolute Auto 3.1 X10*3/uL (1.2-4.9); Lymphocytes Percent Auto 26.7 % (20-40); MANUAL DIFF FLAG NO; Mean Corpuscular HGB Conc 32.5 g/dl (31.0-35.0); Mean Corpuscular Hemoglobin 28.8 pg (27.0-33.0); Mean Corpuscular Volume 88.5 fL (80.0-98.0); Mean Platelet Volume 10.9 fL (9.4-12.3); Monocytes Absolute Auto 0.8 X10*3/uL (0.1-1.2); Monocytes Percent Auto 7.3 % (2-11); Neutrophils Absolute Auto 7.2 x10*3/uL (2.0-8.3); Neutrophils Percent Auto 62.5 % (45-73); Platelet Count 248 X10*3/uL (160-400); Red Blood Count 4.17 X10*6/uL (4.20-5.50); Red Cell Distribution Width 13.2 % (11.0-16.0); White Blood Count 11.6 X10*3/uL (4.8-10.8)
[2022-01-17 02:03] LABS: Anion Gap 15 (12-20); Blood Urea Nitrogen 16 mg/dL (9-16); Calcium 9.3 mg/dL (8.4-10.2); Carbon Dioxide 27 mmol/L (22-29); Chloride 106 mmol/L (96-108); Creatinine Clr Calc Pharmacy 33.1; Estimated Glomerular Filt Rate 38; Glucose Random 70 mg/dL (60-115); Potassium 4.7 mmol/L (3.3-5.1); Sodium 143 mmol/L (135-145)
[2022-01-17 02:10] LABS: Troponin-I High Sensitivity < 3.5 ng/L (<3.5-17.0)
[2022-01-17 02:34] VITALS: BP 107/70; PULSE 91; RESP 13; O2SAT 98
[2022-01-17 04:00] VITALS: BP 139/88; PULSE 99; RESP 20; TEMP 36.7; O2SAT 97
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
[2022-01-17] MEDS: Ketorolac Tromethamine 60 MG/2 ML VIAL IM (06:27)
[2022-01-17 07:30] VITALS: PULSE 78; RESP 14; O2SAT 98
== END 2022-01-17 07:31 | disposition home or self-care (01) ==
PROVIDERS: Emergency Provider Emergency Medicine Emergency Medical Services
DX: M94.0 Chondrocostal junction syndrome [Tietze] (principal); E11.22 Type 2 diabetes mellitus with diabetic chronic kidney disease; I12.9 Hypertensive chronic kidney disease with stage 1 through stage 4 chronic kidney disease, or unspecified chronic kidney disease; N18.30 Chronic kidney disease, stage 3 unspecified; Z79.4 Long term (current) use of insulin; F17.200 Nicotine dependence, unspecified, uncomplicated
CPT/HCPCS: 36415; 71045; 80048; 84484; 85025; 93005; 96372; 99284; J1885

== ENCOUNTER 2022-01-21 08:19 | Outpatient (REF) | payer MEDICARE, OTHER, SELFPAY ==
--- NOTE | ~2022-01-21 | XR_ITS ---
EXAMINATION: XR WRIST, RIGHT CLINICAL INFORMATION: Pain. Recent fall, trauma COMPARISON: Radiographs right wrist 12/30/2021 TECHNIQUE: Right wrist is imaged in 4 views. FINDINGS: There is no acute or healing fracture, dislocation, destructive process. The ulnar variance is near neutral. There is probable small cysts radial side of the radius. No matrix mineralization. No periostitis. Pronator quadratus fat pad appears normal. No joint narrowing or erosive change or chondrocalcinosis. XR/XR wrist RT w scaphoid IMPRESSION: No acute or healing fracture, dislocation, or arthropathy.
== END 2022-01-21 08:20 | disposition home or self-care (01) ==
LOC: HO.HOSX 08:19
PROVIDERS: Visit Provider Orthopaedic Surgery
DX: M25.531 Pain in right wrist (principal); E11.42 Type 2 diabetes mellitus with diabetic polyneuropathy
CPT/HCPCS: 73110; 99211; 99212

== ENCOUNTER → 2022-02-12 12:32 | Outpatient (BNVA) | payer OTHER, MEDICAID, SELFPAY | PROVIDERS: PCP Internal Medicine Geriatric Medicine; Visit Provider Dietitian, Registered | DX: E11.65 Type 2 diabetes mellitus with hyperglycemia (principal); Z71.3 Dietary counseling and surveillance | CPT/HCPCS: 97803 ==

== ENCOUNTER → 2022-04-17 11:58 | Outpatient (BNVA) | payer OTHER, MEDICAID, SELFPAY | PROVIDERS: PCP Internal Medicine Geriatric Medicine; Visit Provider Dietitian, Registered | DX: E11.65 Type 2 diabetes mellitus with hyperglycemia (principal) | CPT/HCPCS: 97803 ==

== ENCOUNTER 2022-05-25 09:29 | Emergency (ER) | payer OTHER, MEDICAID, SELFPAY ==
--- NOTE | ~2022-05-25 | XR_ITS ---
EXAMINATION: XR CHEST CLINICAL INFORMATION: Cough COMPARISON: Chest radiographs 01/17/2022, 12/31/2021 TECHNIQUE: 2 views of the chest were obtained. FINDINGS: The lungs are clear. No airspace consolidation or groundglass opacity or effusion. The heart is normal in size. The vascularity is normal. No coarsening of the bronchiolar markings. The costophrenic sulci are clear. The hilar and mediastinal contours and visualized bony structures are unremarkable. XR/XR chest 2V IMPRESSION: Lungs clear.
[2022-05-25 09:39] VITALS: BP 140/70; PULSE 84
[2022-05-25 09:55] VITALS: BP 171/87; PULSE 82; RESP 16; TEMP 36.8; O2SAT 98; BMI 24.2
[2022-05-25 10:59] LABS: Hematocrit 41.8 % (37.0-47.0); Hemoglobin 14.1 g/dl (12.0-16.0); Mean Corpuscular HGB Conc 33.7 g/dl (31.0-35.0); Mean Corpuscular Hemoglobin 28.4 pg (27.0-33.0); Mean Corpuscular Volume 84.1 fL (80.0-98.0); Mean Platelet Volume 12.1 fL (9.4-12.3); Platelet Count 187 X10*3/uL (160-400); Red Blood Count 4.97 X10*6/uL (4.20-5.50); Red Cell Distribution Width 13.2 % (11.0-16.0); White Blood Count 9.6 X10*3/uL (4.8-10.8)
[2022-05-25 11:24] LABS: Alanine Aminotransferase 10 U/L (0-31); Alkaline Phosphatase 89 U/L (39-117); Anion Gap 14 (12-20); Aspartate Amino Transferase 9 U/L (5-31); Bilirubin Direct 0.2 mg/dL (0.0-0.5); Bilirubin Total 0.5 mg/dL (0.0-1.0); Blood Urea Nitrogen 17 mg/dL (9-16); Calcium 10.1 mg/dL (8.4-10.2); Carbon Dioxide 29 mmol/L (22-29); Chloride 100 mmol/L (96-108); Creatinine Clr Calc Pharmacy 33.9; Estimated Glomerular Filt Rate 42; Glucose Random 488 mg/dL (60-115); Lipase 22 U/L (8-78); Magnesium 1.6 mg/dL (1.6-2.6); Potassium 5.6 mmol/L (3.3-5.1); Sodium 137 mmol/L (135-145); Total Protein 6.7 g/dL (6.5-8.0)
[2022-05-25 11:26] LABS: IDNOW Serial# 9DB6401D; Influenza A Negative (Negative); Influenza B2 Negative (Negative)
[2022-05-25 11:31] LABS: COVID-19 Test Negative (Negative); IDNOW Serial# 55D5AD1C
[2022-05-25] MEDS: Insulin Lispro 100 UNIT/ML 3 ML VIAL SUBCUT (12:15)
[2022-05-25] MEDS: oxyCODONE HCl Immed Release 5 MG TABLET PO (12:15)
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
[2022-05-25 13:38] LABS: Glucose, Whole Blood 336 mg/dL (60-115)
--- NOTE | 2022-05-25 13:43 | PC.NURSE ---
pt refusing po kayexalate, sts itake it at home, ill do it later .
== END 2022-05-25 13:49 | disposition home or self-care (01) ==
PROVIDERS: Emergency Provider Emergency Medicine; PCP Internal Medicine Geriatric Medicine
DX: M54.16 Radiculopathy, lumbar region (principal); E87.5 Hyperkalemia; E11.65 Type 2 diabetes mellitus with hyperglycemia; Z20.822 Contact with and (suspected) exposure to COVID-19; E11.22 Type 2 diabetes mellitus with diabetic chronic kidney disease; I12.9 Hypertensive chronic kidney disease with stage 1 through stage 4 chronic kidney disease, or unspecified chronic kidney disease; N18.30 Chronic kidney disease, stage 3 unspecified; E78.5 Hyperlipidemia, unspecified; B19.20 Unspecified viral hepatitis C without hepatic coma; E53.8 Deficiency of other specified B group vitamins; Z79.4 Long term (current) use of insulin; Z79.02 Long term (current) use of antithrombotics/antiplatelets; Z79.82 Long term (current) use of aspirin; Z79.899 Other long term (current) drug therapy
CPT/HCPCS: 36415; 71046; 80048; 80076; 82947; 83690; 83735; 85027; 87502; 87635; 99284

== ENCOUNTER 2022-07-29 13:31 | Outpatient (REF) | payer OTHER, SELFPAY ==
--- NOTE | ~2022-07-29 | XR_ITS ---
EXAMINATION: XR lumbar spine 2-3V CLINICAL INFORMATION: Reason for Exam PAIN COMPARISON: None TECHNIQUE: 3 views of the lumbar spine FINDINGS: 5 nonrib-bearing lumbar-type vertebral bodies. Vertebral body heights are maintained. Rightward scoliosis of the lumbar spine. Mild multilevel degenerative disc disease with loss of disc space height, facet arthropathy and disc osteophyte complexes. This is worst at L5/S1 and L3/L4. Paravertebral soft tissues are unremarkable. XR/XR lumbar spine 2-3V IMPRESSION: 1. Moderate spondylosis of the lumbar spine, as above detailed. 2. No significant spondylolisthesis.
== END 2022-07-29 13:32 | disposition home or self-care (01) ==
LOC: HO.XRAY 13:31
PROVIDERS: PCP Internal Medicine Geriatric Medicine; Visit Provider Internal Medicine Geriatric Medicine
DX: M54.50 Low back pain, unspecified (principal); M79.604 Pain in right leg
CPT/HCPCS: 72100

== ENCOUNTER → 2022-08-11 14:44 | Outpatient (BNVA) | payer OTHER, SELFPAY | PROVIDERS: PCP Internal Medicine Geriatric Medicine; Visit Provider Internal Medicine Endocrinology, Diabetes & Metabolism | DX: E11.65 Type 2 diabetes mellitus with hyperglycemia (principal); E78.5 Hyperlipidemia, unspecified | CPT/HCPCS: 82947; 83036 ==

== ENCOUNTER 2022-10-07 12:49 | Outpatient (REF) | payer OTHER, SELFPAY ==
--- NOTE | ~2022-10-07 | MR_ITS ---
EXAMINATION: MR LUMBAR SPINE WITHOUT CONTRAST CLINICAL INFORMATION: Chronic low back pain with right-sided sciatica COMPARISON: Lumbar spine radiographs 07/29/2022 TECHNIQUE: MRI of the lumbar spine was obtained using routine sequences without contrast. FINDINGS: There is lumbar dextrocurvature, apex at L2-L3. Mild left lateral listhesis of L2 on L3. Draining of the normal lumbar lordosis. Trace grade 1 retrolisthesis of L3 on L4 and L4 on L5. There is mild chronic height loss of the L5 vertebral body with depression along the inferior endplate. Diffuse marrow signal heterogeneity. Focal fat deposition versus intraosseous hemangioma within the L3 vertebral body. Severe left eccentric L2-L3 and L3-L4, severe marginal L5-S1, and moderate to severe right eccentric L4-L5 disc height loss. Multilevel endplate irregularity/Schmorl's node formation and mixed type I/II Modic endplate changes spanning L2-L3 through L5-S1. Multilevel anterior osteophytic spurring is seen.There are multilevel degenerative changes with level by level detail as follows: L1-L2: Trace annular disc bulge without spinal canal or neural foraminal stenosis. L2-L3: Disc osteophyte complex eccentric to the right with prominent left ventrolateral disc osteophyte. Mild bilateral facet hypertrophy. Mild spinal canal stenosis and subarticular zone narrowing with mass effect upon the traversing right L3 and abutment along the traversing left L3 nerve roots. Mild bilateral neural foraminal stenosis. L3-L4: Left eccentric disc osteophyte complex with mild bilateral facet hypertrophy. Mild spinal canal stenosis and subarticular zone narrowing with abutment along the traversing left L4 nerve root and encroachment upon the traversing right L4 nerve root. The cauda equina nerve roots lie preferentially within the left aspect of the thecal sac. Mild left greater than right neural foraminal stenosis. L4-L5: Right eccentric disc osteophyte complex with inferiorly migrated central disc extrusion, moderate right and mild left facet arthrosis and ligamentum flavum thickening. 7 mm extracanalicular synovial cyst on the right projecting into the right paraspinal soft tissues. Mild to moderate right eccentric spinal canal stenosis with severe right subarticular zone stenosis and compression along the traversing right L5 nerve root. Milder left subarticular zone narrowing with abutment along the traversing left L5 nerve root. Asymmetric enlargement and T2/T2 hyperintensity along the traversing right L5 nerve root likely on the basis of compressive neuropathy. Severe right neural foraminal stenosis with compression of the exiting right L4 nerve root. Mild left neural foraminal stenosis. L5-S1: Right eccentric disc osteophyte complex with moderate right greater than left facet arthrosis. No spinal canal stenosis. Severe bilateral subarticular zone stenosis and compression along the traversing bilateral S1 nerve roots. Moderate to severe right and moderate left neural foraminal stenosis with mass effect along the exiting/extraforaminal right greater than left L5 nerve roots. The conus medullaris terminates at the level of T12-L1. The distal spinal cord is normal in appearance. . No epidural fluid collection, hematoma, or mass. There is mild fatty infiltration of the paraspinal musculature. Colonic diverticulosis. Left-sided renal cortical scarring. The abdominal aorta is normal in contour and caliber. Partially imaged degenerative changes of the right greater than left sacroiliac joints with osseous spurring and subchondral sclerosis. MR/MR lumbar spine wo con IMPRESSION: 1. Lumbar dextrocurvature with advanced multilevel lumbar spondylosis. 2. At L4-L5, there is mild to moderate right eccentric spinal canal stenosis and severe right subarticular zone stenosis with compression along the traversing right L5 nerve root. Asymmetric enlargement and signal abnormality of the traversing right L5 nerve root likely on the basis of compressive neuropathy. Severe right neural foraminal stenosis with compression of the exiting right L4 nerve root. 3. At L5-S1, severe bilateral subarticular zone stenosis and compression along the traversing bilateral S1 nerve roots. Moderate to severe right and moderate left neural foraminal stenosis with mass effect along the right greater than left exiting/extraforaminal L5 nerve roots.
== END 2022-10-07 12:50 | disposition home or self-care (01) ==
LOC: HO.MRI 12:49
PROVIDERS: PCP Internal Medicine Geriatric Medicine; Visit Provider Internal Medicine Geriatric Medicine
DX: M54.50 Low back pain, unspecified (principal); G89.29 Other chronic pain
CPT/HCPCS: 72148

== ENCOUNTER 2022-11-19 09:43 | Outpatient (REF) | payer OTHER, SELFPAY ==
[2022-11-19 11:55] LABS: Cholesterol 262 mg/dL; HDL Cholesterol 56 mg/dL; LDL Cholesterol Calculated 190 mg/dl; Triglycerides 83 mg/dL
== END 2022-11-19 09:44 | disposition home or self-care (01) ==
LOC: HO.LAB 09:43
PROVIDERS: PCP Internal Medicine Geriatric Medicine; Visit Provider Internal Medicine Endocrinology, Diabetes & Metabolism
DX: E78.5 Hyperlipidemia, unspecified (principal)
CPT/HCPCS: 36415; 80061

== ENCOUNTER 2022-12-11 14:56 | Emergency (ER) | payer OTHER, MEDICAID, SELFPAY ==
--- NOTE | ~2022-12-11 | US_ITS ---
EXAMINATION: NONINVASIVE ASSESSMENT OF THE ARTERIES OF BOTH LOWER EXTREMITIES INCLUDING BILATERAL LOWER EXTREMITY DUPLEX. CLINICAL INFORMATION: Discoloration of the toes COMPARISON: None TECHNIQUE: duplex Doppler techniques with wave form analysis and measurement of velocities in the common femoral, profunda femoral, superficial femoral, popliteal, tibial and peroneal arteries. The study was performed only at rest. FINDINGS: RIGHT LEG Common femoral artery: 131 cm/s, Multiphasic Profunda femoris artery: 89 cm/s, Multiphasic Superficial femoral artery (proximal): 112 cm/s, Multiphasic Superficial femoral artery (mid): 100 cm/s, Multiphasic Superficial femoral artery (distal): 111 cm/s, Multiphasic Proximal Popliteal artery: 89 cm/s, Multiphasic Mid posterior tibial artery: 21 cm/s, Multiphasic Peroneal artery: Flow reversal LEFT LEG: Common femoral artery: 142 cm/s, Multiphasic Profunda femoris artery: 176 cm/s, Multiphasic Superficial femoral artery (proximal): 41 cm/s, monophasic Superficial femoral artery (mid): 453 cm/s, monophasic Superficial femoral artery (distal): 34 cm/s, monophasic Proximal Popliteal artery: 47 cm/s, monophasic Mid posterior tibial artery: Not visualized Peroneal artery: Not visualized US/US arterial duplex LE BI IMPRESSION: 1. Hemodynamically significant stenosis (suspect severe) of the left mid superficial femoral artery. Consider CTA or MRA for further evaluation. 2. No hemodynamically significant stenosis in the right lower extremity.
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
[2022-12-11 15:22] VITALS: BP 145/88; PULSE 101; RESP 18; TEMP 36.7; O2SAT 98; BMI 22.8
[2022-12-11 15:44] LABS: MANUAL DIFF FLAG NO
[2022-12-11 15:48] LABS: Basophils Absolute Auto 0.1 X10*3/uL (0.0-0.2); Basophils Percent Auto 0.9 % (0-2); Eosinophils Absolute Auto 0.1 X10*3/uL (0.0-0.4); Eosinophils Percent Auto 0.4 % (0-4); Hematocrit 41.4 % (37.0-47.0); Hemoglobin 13.9 g/dl (12.0-16.0); Imm Gran Abs Auto 0.05 X10*3/uL (0.00-0.03); Imm Gran Pct Auto 0.4 % (0.0-0.4); Lymphocytes Absolute Auto 2.6 X10*3/uL (1.2-4.9); Mean Corpuscular HGB Conc 33.6 g/dl (31.0-35.0); Mean Corpuscular Hemoglobin 28.5 pg (27.0-33.0); Mean Corpuscular Volume 84.8 fL (80.0-98.0); Mean Platelet Volume 11.1 fL (9.4-12.3); Monocytes Percent Auto 7.1 % (2-11); Neutrophils Absolute Auto 9.9 x10*3/uL (2.0-8.3); Neutrophils Percent Auto 72.2 % (45-73); Platelet Count 185 X10*3/uL (160-400); Red Blood Count 4.88 X10*6/uL (4.20-5.50); Red Cell Distribution Width 12.9 % (11.0-16.0); White Blood Count 13.6 X10*3/uL (4.8-10.8)
[2022-12-11 16:26] LABS: Erythrocyte Sedimentation Rate 10 MM/HR (0-20)
[2022-12-11 20:00] VITALS: BP 155/88; PULSE 103; RESP 18; O2SAT 100
[2022-12-11 20:09] LABS: Alanine Aminotransferase 23 U/L (0-31); Albumin Level 4.1 g/dL (3.5-5.0); Alkaline Phosphatase 91 U/L (39-117); Anion Gap 20 (12-20); Aspartate Amino Transferase 72 U/L (5-31); Bilirubin Total 0.8 mg/dL (0.0-1.0); Blood Urea Nitrogen 19 mg/dL (9-16); C Reactive Protein 0.38 mg/dL (< or = 0.50); Calcium 10.5 mg/dL (8.4-10.2); Carbon Dioxide 24 mmol/L (22-29); Chloride 95 mmol/L (96-108); Creatinine Clr Calc Pharmacy 29.4; Estimated Glomerular Filt Rate 39; Glucose Random 510 mg/dL (60-115); Magnesium 1.7 mg/dL (1.6-2.6); Sodium 134 mmol/L (135-145); Total Protein 7.6 g/dL (6.5-8.0)
[2022-12-11] MEDS: Heparin Sodium,Porcine 5,000 UNIT/ML VIAL 4200 UNIT IVPUSH (21:12)
[2022-12-11] MEDS: Insulin Regular, Human 100 UNIT/ML 3 ML VIAL IVPUSH (21:18)
[2022-12-11 21:27] LABS: INTERNATIONAL NORM RATIO 0.9 (0.9-1.1); Prothrombin Time 10.8 SEC (10.0-13.1)
[2022-12-11 21:30] LABS: PTT Heparin Drip 26.8 SEC (53-77.9)
[2022-12-11] MEDS: 0.9 % Sodium Chloride 1,000 ML 999 ML IV (21:50)
[2022-12-11] MEDS: Heparin Sodium,Porcine/1/2NS 25,000 UNIT/250 ML IV.SOLN 7.35 UNIT IVCONT (21:54)
[2022-12-11 22:51] LABS: COVID-19 Test Negative (Negative); IDNOW Serial# 08D9AD1C
[2022-12-11 22:51] LABS: Glucose, Whole Blood 275 mg/dL (60-115)
--- NOTE | 2022-12-11 22:55 | MHC.EDTECH ---
VSS, POC and covid done. Patient resting quietly awaiting transfer
[2022-12-12] MEDS: Morphine Sulfate 4 MG/ML CARTRIDGE IVPUSH (00:02)
--- NOTE | 2022-12-12 00:04 | MHC.EDTECH ---
Callback from [facility] with bed assignment to M6 RM [address] Matta, Nurse to Nurse phone number [phone]
--- NOTE | 2022-12-12 00:13 | MHC.EDTECH ---
call out to gabriel for ALS transport to [facility], estimated time given was 29, if not sooner
--- NOTE | 2022-12-12 00:38 | PC.NURSE ---
Nurse to nurse report given to LETICIA Rosa at [facility]. Pt aware of plan of care.
== END 2022-12-12 00:38 | disposition short-term general hospital (02) ==
PROVIDERS: Physician Assistant; Physician Assistant Medical; Emergency Provider Internal Medicine; PCP Internal Medicine Geriatric Medicine
DX: R60.0 Localized edema (principal); I87.2 Venous insufficiency (chronic) (peripheral); E11.65 Type 2 diabetes mellitus with hyperglycemia; R10.2 Pelvic and perineal pain; Z79.4 Long term (current) use of insulin; Z20.822 Contact with and (suspected) exposure to COVID-19; Z20.828 Contact with and (suspected) exposure to other viral communicable diseases; Z79.899 Other long term (current) drug therapy
CPT/HCPCS: 36415; 80053; 82947; 83735; 85025; 85610; 85652; 85730; 86140; 87635; 93925; 96361; 96374; 96375; 99285; J1643; J2270

== ENCOUNTER → 2022-12-24 09:59 | Outpatient (BNVA) | payer OTHER, MEDICAID, SELFPAY | PROVIDERS: PCP Internal Medicine Geriatric Medicine; Visit Provider Surgery Vascular Surgery ==

== ENCOUNTER 2023-02-13 14:38 | Emergency (ER) | payer OTHER, SELFPAY ==
[2023-02-13] VITALS (7 sets, daily range): BP systolic 112–162; BP diastolic 72–96; PULSE 77–89; RESP 15–20; TEMP 36.7–37.2; O2SAT 96–100; BMI 22.6
--- NOTE | ~2023-02-13 | XR_ITS ---
EXAMINATION: XR CHEST CLINICAL INFORMATION: Cough COMPARISON: 05/25/2022 TECHNIQUE: Frontal view of the chest was obtained. FINDINGS: No significant abnormality is noted involving the heart, lungs, mediastinum, bony thorax or soft tissues. XR/XR chest 1V IMPRESSION: Unremarkable examination.
--- NOTE | ~2023-02-13 | CT_ITS ---
EXAMINATION: CT ANGIOGRAM HEAD CT ANGIOGRAM NECK CLINICAL INFORMATION: Cerebrovascular accident one month prior. Worsening right leg weakness. COMPARISON: CT head from 06/12/2019. TECHNIQUE: Initial noncontrast chemical plant operator imaging of the head and neck was performed. Noncontrast head CT was also performed. Test bolus sequences followed by intravenous administration 70 mL of Omnipaque 350. Helical imaging was performed in the axial plane from the aortic arch to the skull vertex. Delayed postcontrast imaging of the head was also performed. The data was processed at the ct scan special procedures technologist's workstation for generation of MIP sequences. Angled MIPs and volume rendered reformatted images were also generated at an offline 3D workstation. Stenoses are assessed in accordance with NASCET criteria unless otherwise indicated. This CT examination was performed using dose optimization techniques as appropriate, variously including the following: *Automated exposure control. *Adjustment of mA and/or kV according to patient size (this includes techniques or standardized protocols for targeted exams where dose is matched to indication/reason for exam; i.e. extremities or head). *Use of iterative reconstruction technique. DLP: 1929 mGy-cm FINDINGS: CT Head: There are regions of encephalomalacia within the left frontal lobe (including the left precentral gyrus) with associated cortical enhancement as may be seen with subacute infarcts. There is also a region of chronic appearing encephalomalacia within the left middle cerebellar peduncle volume loss. No additional loss of cabrera-white matter differentiation. No evidence of acute intracranial hemorrhage. A few foci of hypoattenuation in the periventricular and deep white matter are consistent with mild microangiopathy. The ventricles are normal in morphology and size. No evidence for obstructive hydrocephalus. No abnormal mass effect or midline shift. No extra-axial fluid collections. No additional pathologic intra-axial enhancement. No acute soft tissue or osseous abnormalities. Mild mucosal thickening of the paranasal sinuses. The mastoid air cells and middle ear cavities are clear. The patient is edentulous. CT Neck: The thyroid gland and remaining cervical soft tissues are within normal limits. Straightening of the normal cervical lordosis. Mild degenerative anterolisthesis of C4 on C5. Advanced degenerative disc disease at C5-C6 and C6-C7. [id number] degenerative disc disease at all additional cervical levels. Facet and uncovertebral joint arthropathy leads to osseous encroachment on the neural foramina from C4-C7. CT Upper Chest: The visualized lung apices and upper mediastinum are within normal limits. Neck CTA: Aortic Arch: Classic 3 vessel branching pattern of the aortic arch. Great Vessel Origins: No significant stenosis of the branch origins. Right Common Carotid Artery: No focal stenosis or occlusion. Cervical Right Internal Carotid Artery: Mixed fibrofatty and calcific atherosclerotic disease of the carotid bulb and proximal internal carotid artery causing less than 50% stenosis. Left Common Carotid Artery: No focal stenosis or occlusion. Cervical Left Internal Carotid Artery: Mixed fibrofatty and calcific atherosclerotic disease of the carotid bulb and proximal internal carotid artery causing less than 50% stenosis. Cervical Right Vertebral Artery: The right vertebral artery is hypoplastic with concomitant decrease in caliber the foramina transversarium. Atherosclerotic disease causes mild stenosis of the origin. No additional focal stenosis or occlusion. Cervical Left Vertebral Artery: Dominant. Atherosclerotic disease causes mild stenosis of the origin. No additional focal stenosis or occlusion. Brain CTA: Intracranial Internal Carotid Arteries: Multifocal mixed fibrofatty and calcific atherosclerotic disease of the intracranial internal carotid arteries without occlusion. There are moderate to high-grade stenoses of the lacerum and anatomic segments of the right ICA and cavernous segments of the left ICA. Right Anterior Cerebral Artery: Normal A1 segment. Normal opacification of the distal PALMIRA segments. Left Anterior Cerebral Artery: Normal A1 segment. Normal opacification of the distal PALMIRA segments. Anterior Communicating Artery: Normal. Right Middle Cerebral Artery: Normal M1 segment of the MCA without focal stenosis or occlusion. Normal arborization of the distal segments. Left Middle Cerebral Artery: Normal M1 segment of the MCA without focal stenosis or occlusion. Normal arborization of the distal segments. Right Vertebral Artery: The V4 segment largely terminates as the posterior inferior cerebellar artery. Left Vertebral Artery: Disc disease causes moderate stenosis of the V4 segment without occlusion. Normal opacification of the proximal segments of the posterior inferior cerebellar artery. Basilar Artery: Normal without focal stenosis or occlusion. Normal appearance of the proximal superior cerebellar arteries. Right Posterior Cerebral Artery: Normal P1 segment. Normal opacification of the distal TRAVEL REGISTERED NURSE PACU segments. Left Posterior Cerebral Artery: Atherosclerotic disease causes moderate stenoses of the P1 and P3 segments without proximal occlusion. Normal opacification of the superior sagittal, straight, transverse, and sigmoid sinuses. CT/CT angio head neck IMPRESSION: 1. There are regions of encephalomalacia within the left frontal lobe (including the left precentral gyrus) as may be seen with subacute infarcts. There is also a region of chronic appearing encephalomalacia within the left middle cerebellar peduncle. Mild underlying microangiopathy. 2. No evidence of acute intracranial hemorrhage. 3. CTA of the head and neck without proximal occlusion. 4. Atherosclerotic disease causes moderate to high-grade stenoses of the lacerum and anatomic segments of the right ICA and cavernous segments of the left ICA. There are moderate stenoses of the P1 and P3 segments of the left TRAVEL REGISTERED NURSE PACU. 5. Moderate multilevel degenerative spondyloarthropathy of the cervical spine.
--- NOTE | 2023-02-13 15:14 | PC.NURSE ---
patient a&ox3, noted rt leg weakness and rt arm weakness with rt arm drift, rt hand weak shirt maker, smile is symmetrical, pt stated her rt arm/leg weakness is not new and it has been this way since her recent stroke.
--- NOTE | 2023-02-13 15:35 | ECG_ITS ---
Test Reason : WEAKNESS Blood Pressure : / mmHG Vent. Rate : 077 BPM Atrial Rate : 077 BPM P-R Int : 118 ms QRS Dur : 068 ms QT Int : 366 ms P-R-T Axes : 017 056 069 degrees QTc Int : 414 ms Normal sinus rhythm Normal ECG When compared with ECG of 17-JAN-2022 01:32, No significant change was found Referred By: Augusta Busby Electronically Signed By:OTTO FRANCO
--- NOTE | 2023-02-13 15:41 | PC.NURSE ---
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 pt verbalizing no pain but an increase in weakness since this morning. pt reports numbness/tingling in lower extremities causing difficulty while ambulating. pt denies any other sx. call kate placed within reach.
[2023-02-13 16:08] LABS: MANUAL DIFF FLAG NO
--- NOTE | 2023-02-13 16:09 | MHC.EDTECH ---
THIS PCT ASSUMED CARE OF PT AT 1500 ,VITALS SIGN TAKEN , 2ND SETS OF BLOOD CULTURE DRAWN AND SENT TO LAB ,EKG ONE AND WAS READ BY PROVIDER .
[2023-02-13 16:11] LABS: Basophils Absolute Auto 0.1 X10*3/uL (0.0-0.2); Basophils Percent Auto 1.1 % (0-2); Eosinophils Absolute Auto 0.1 X10*3/uL (0.0-0.4); Eosinophils Percent Auto 1.2 % (0-4); Hematocrit 36.6 % (37.0-47.0); Hemoglobin 11.9 g/dl (12.0-16.0); Imm Gran Abs Auto 0.02 X10*3/uL (0.00-0.03); Imm Gran Pct Auto 0.2 % (0.0-0.4); Mean Corpuscular HGB Conc 32.5 g/dl (31.0-35.0); Mean Corpuscular Hemoglobin 27.3 pg (27.0-33.0); Mean Corpuscular Volume 83.9 fL (80.0-98.0); Monocytes Absolute Auto 0.6 X10*3/uL (0.1-1.2); Monocytes Percent Auto 6.8 % (2-11); Neutrophils Absolute Auto 4.6 x10*3/uL (2.0-8.3); Neutrophils Percent Auto 54.7 % (45-73); Platelet Count 195 X10*3/uL (160-400); Red Blood Count 4.36 X10*6/uL (4.20-5.50); Red Cell Distribution Width 12.1 % (11.0-16.0); White Blood Count 8.4 X10*3/uL (4.8-10.8)
[2023-02-13 16:17] LABS: INTERNATIONAL NORM RATIO 0.9 (0.9-1.1); Prothrombin Time 10.8 SEC (11.1-13.3)
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
[2023-02-13 16:26] LABS: Lactic Acid 2.4 mmol/L (0.5-2.0)
[2023-02-13 16:37] LABS: Troponin-I High Sensitivity < 2.7 ng/L (<3.5-17.0)
[2023-02-13 16:37] LABS: Bilirubin Total 0.4 mg/dL (0.0-1.0); Carbon Dioxide 23 mmol/L (22-29); Sodium 134 mmol/L (135-145)
--- NOTE | 2023-02-13 16:51 | MHC.EDTECH ---
PATIENT REPEATED CMP DRAWN AND URINE SAMPLE COLLECTED AND SENT TO LAB ,PT RESTING QUIETLY IN BED .
[2023-02-13 16:56] LABS: Appearance Urine Clear; Color Urine Yellow; Glucose Urine UA >=1000 mg/dL (Negative); Leukocyte Esterase Urine Moderate (2+) (Negative); Nitrite Urine Negative (Negative); UMIC TRIGGER UACC YES; Urine Blood Negative (Negative); Urine Ketones Negative (Negative); Urine Protein Negative (Neg-Trace)
[2023-02-13 17:00] LABS: Bacteria Urine None Seen (None Seen); Hyaline Casts Urine 0-2 /LPF (0-2); RBC Urine 0-2 /HPF (0-2); Squamous Epithelial Cell Urine 0-2 /HPF (0-2); UACC Culture Trigger YES
[2023-02-13 17:36] LABS: Alanine Aminotransferase 9 U/L (0-31); Albumin Level 3.6 g/dL (3.5-5.0); Alkaline Phosphatase 85 U/L (39-117); Anion Gap 15 (12-20); Aspartate Amino Transferase 15 U/L (5-31); Blood Urea Nitrogen 29 mg/dL (9-16); Calcium 9.5 mg/dL (8.4-10.2); Chloride 101 mmol/L (96-108); Creatinine Clr Calc Pharmacy 36.1; Estimated Glomerular Filt Rate 50; Potassium 4.7 mmol/L (3.3-5.1); Total Protein 6.6 g/dL (6.5-8.0)
--- NOTE | 2023-02-13 17:43 | PC.NURSE ---
pt transferred to CT - will administer medications when pt returns.
--- NOTE | 2023-02-13 17:45 | PC.NURSE ---
pt to ct scan
[2023-02-13] MEDS: iohexoL 350 MG/ML 100 ML INFUS..BTL IV (18:03)
[2023-02-13 18:06] LABS: Reflex Lactate? Lactic Acid Added
[2023-02-13] MEDS: cefTRIAXone sodium 1 GM in 0.9 % Sodium Chloride 50 ML IV (18:10)
[2023-02-13] MEDS: 0.9 % Sodium Chloride 1,000 ML 999 ML IVCONT (18:10)
[2023-02-13] MEDS: Insulin Regular, Human 100 UNIT/ML 3 ML VIAL IVPUSH (18:11)
--- NOTE | 2023-02-13 18:19 | PC.NURSE ---
pt returned from CT, medication and IVF hung and administered per provider order. pt resting comfortably with the call kate within reach.
--- NOTE | 2023-02-13 18:44 | MHC.EDTECH ---
PATIENT 2ND LACTIC DRAWN AND SENT TO LAB ,VITALS SIGN TAKEN ,PT WAS REPOSITION AND WARM BLANKET GIVEN ,PT DAUGHTER AT BEDSIDE .
[2023-02-13 19:00] LABS: ~Lactic Acid-LAB USE ONLY 1.6 mmol/L (0.5-2.0)
[2023-02-13 19:19] LABS: Glucose Random 368 mg/dL (60-115)
--- NOTE | 2023-02-13 19:37 | MHC.EDTECH ---
PT WAS INCONTINENT OF URINE ,CARE GIVEN AND BEDDING CHANGE ,PT RESTING QUIETLY IN BED ,PT DAUGHTER AT BEDSIDE ,VITALS SIGN TAKEN .
[2023-02-13 22:15] LABS: Glucose, Whole Blood 214 mg/dL (60-115)
--- NOTE | 2023-02-13 22:27 | MHC.EDTECH ---
PT ATE A PBJ SANDWICH AND DRANK A CAN OF KERA SHLOMO ,PT IS COMFORTABLE WATCHING TELEVISION .
[2023-02-14] VITALS: BP 153/80; PULSE 92; RESP 20; TEMP 36.7; O2SAT 98
--- NOTE | 2023-02-14 00:13 | MHC.EDTECH ---
0000 ROUNDING DONE ,VITALS SIGN TAKEN ,PT WAS REPOSITION ,WARM BLANKET GIVEN AND SOME JUICE ,PT IS COMFORTABLE RESTING QUIETLY .
[2023-02-14 01:43] VITALS: BP 174/99; PULSE 87; RESP 16; TEMP 36.2; O2SAT 98
--- NOTE | 2023-02-14 01:44 | MHC.EDTECH ---
0200 ROUNDING DONE ,VITALS SIGN TAKEN ,PT WAS INCONTINENT OF URINE ,CARE GIVEN ,BEDDING CHANGE ,WARM BLANKET GIVEN ,PT DRANK SOME WATER AND IS COMFORTABLE AT THIS TIME .
[2023-02-14 04:00] VITALS: BP 141/86; PULSE 79; RESP 16; TEMP 36.8; O2SAT 97
--- NOTE | 2023-02-14 04:14 | MHC.EDTECH ---
0400 ROUNDING DONE ,VITALS SIGN TAKEN ,PT AWAKE AND LAYING IN BED ,WARM BLANKET GIVEN .
[2023-02-14 06:00] VITALS: BP 167/90; PULSE 83; RESP 16; TEMP 36.9; O2SAT 98
--- NOTE | 2023-02-14 06:08 | MHC.EDTECH ---
0600 ROUNDING DONE ,VITALS SIGN TAKEN ,PT WAS REPOSITION AND BOOSTED UP IN BED ,PT IS DRY 350 ML URINE EMPTY FROM PURE WICK ,PT AWAKE AND COMFORTABLE IN BED ,DRANK SIPS OF WATER .
--- NOTE | 2023-02-14 09:35 | PHA.MEDREC ---
Pharmacy Consult ? Medication Reconciliation Pharmacy has completed the medication reconciliation. Spoke to patient to confirm meds (Faroese speaking).
[2023-02-14] MEDS: Omeprazole 20 MG CAPSULE.DR PO (10:26)
[2023-02-14] MEDS: Venlafaxine HCl ER 150 MG CAP.ER.24H 300 MG PO (10:26)
[2023-02-14 10:44] LABS: Glucose, Whole Blood 362 mg/dL (60-115)
[2023-02-14] MEDS: Hydroxychloroquine Sulfate 200 MG TABLET PO (11:29)
[2023-02-14] MEDS: Insulin Lispro 100 UNIT/ML 3 ML VIAL 10 UNIT SUBCUT (11:30)
[2023-02-14 11:56] VITALS: BP 130/61; PULSE 92; RESP 18; O2SAT 100
[2023-02-14] MEDS: traMADoL HCL 50 MG TABLET PO (12:27)
--- NOTE | 2023-02-14 13:41 | MHC.CM.PN ---
CM consult. Met with patient and dtr Kaylan [phone]
--- NOTE | 2023-02-14 13:44 | MHC.CM.PN ---
CM consult received. Met with patient and dtr Kaylan to discuss discharge. Preferences for [facility] were obtained and referrals were sent. [facility] accepted the patient for SN,PT and TURNTABLE ENGINEER. [facility] has been referred and a task was sent to [facility] options nuclear technician. A face 2 Face document has been sent to the [facility]. Patients family will provide transport home.
--- NOTE | 2023-02-14 14:42 | PC.NURSE ---
Rn Acute met with pt and family at bedside, outside referrals made, pt and family will follow up. family will provide transportation home.
== END 2023-02-14 14:45 | disposition home or self-care (01) ==
PROVIDERS: Student in an Organized Health Care Education/Training Program; Emergency Provider Emergency Medicine
DX: N39.0 Urinary tract infection, site not specified (principal); E11.65 Type 2 diabetes mellitus with hyperglycemia; R53.1 Weakness; I69.951 Hemiplegia and hemiparesis following unspecified cerebrovascular disease affecting right dominant side; E11.22 Type 2 diabetes mellitus with diabetic chronic kidney disease; I12.9 Hypertensive chronic kidney disease with stage 1 through stage 4 chronic kidney disease, or unspecified chronic kidney disease; N18.30 Chronic kidney disease, stage 3 unspecified; E78.5 Hyperlipidemia, unspecified; F17.210 Nicotine dependence, cigarettes, uncomplicated; J44.9 Chronic obstructive pulmonary disease, unspecified; Z79.4 Long term (current) use of insulin; Z79.899 Other long term (current) drug therapy; Z79.01 Long term (current) use of anticoagulants
CPT/HCPCS: 36415; 70496; 70498; 71045; 80053; 81001; 82947; 83605; 84484; 85025; 85610; 87040; 87086; 93005; 96365; 96366; 96375; 99285; J0696; Q9967

== ENCOUNTER 2024-06-30 14:45 | Outpatient (AMB) | payer MEDICARE, SELFPAY ==
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
[2024-06-30 14:51] VITALS: BP 122/78; PULSE 74
[2024-06-30 15:02] LABS: Glucose, Whole Blood 108 mg/dL (60-115)
== END 2024-06-30 15:22 | disposition home or self-care (01) ==
PROVIDERS: Visit Provider Nurse Practitioner Adult Health
DX: E11.65 Type 2 diabetes mellitus with hyperglycemia (principal)

== ENCOUNTER → 2024-06-30 14:45 | Outpatient (BNVA) | payer MEDICARE, SELFPAY | PROVIDERS: Visit Provider Nurse Practitioner Adult Health | DX: E11.65 Type 2 diabetes mellitus with hyperglycemia (principal) | CPT/HCPCS: 82947; 83036; 99202 ==

== ENCOUNTER 2024-11-22 14:44 | Outpatient (REF) | payer MEDICARE, SELFPAY ==
--- OUTSIDE RECORDS SUMMARY | 2024-11-22 14:47 | XMS_ITS | Encounter Summary ---
Author Organization [employer] Address [address] [place] [address] Care Team Providers Care Wig Dresser Name Role Phone Name, Rob IBARRA Primary Care Provider [phone] Reason for Visit * Reason Onset Date Comments Appointment Request 11/20/2024 Encounter Details Date Type Department Care Team ([facility] Contact Info) Description 11/20/2024 Telephone [facility] MED[facility]INE [address] [place], [place] [phone] Name, MD Rob [address] [place] [address] Appointment Request Social History Tobacco Use Types Packs/Day Years Used Date Smoking Tobacco: Every Day Cigarettes Alcohol Use Standard Drinks/Week Comments Never 0 (1 standard drink = 0.6 oz pur e alcohol) Depression Answer Date Recorded Patient Health Questionnaire-9 Score 23 06/18/2023 Patient Health Questionnaire-9 Score 23 06/18/2023 Last PHQ-9: Questionnaire Data Not on file 1 Housing Stability Answer Date Recorded What is your housing situation today? I have chasity snow 02/18/[address] you li ve. Do you have problems with any of the following? None of the above 02/18/2024 Food Insecurity Answer Date Recorded Within the past 12 months, y ou worried that your food would run out before you got money to buy more: Never True 02/18/2024 Within the past 12 months,th e food you bought just didn't last and you didn't have enough money to get more: Never True Transportation Answer Date Recorded In the past 12 months, has l ack of transportation kept you from medical appts, meetings, work or from getting things needed for daily living? I am not sure 02/18/2024 Utilities Answer Date Recorded In the past 12 months, has t he electric, gas, oil or water company threatened to shut off services in your home? No 02/18/2024 Depression Answer Date Recorded Patient Health Questionnaire-2 Score 5 10/27/2024 Internet Access Answer Date Recorded Internet Access Q1 Yes 02/18/2024 Internet Access Q2 Not on file 02/18/2024 Comments Unknown Sex and Gender Information Value Date Recorded Sex Assigned at Female 04/20/2022 10:17 AM EDT Legal Sex Female 10:17 AM EDT Gender Identity Female 04/20/2022 10:17 AM EDT Sexual Orientation Straight 04/20/2022 10 :17 AM EDT documented as of this encounter Miscellaneous Notes * Telephone Encounter - Karen Marin RN - 11/20/2024 1:53 PM EDT Return TC to Alicia George ENTERTAINMENT DIRECTOR RV rescheduled for 12/08/24 @ 2pm. * Telephone Encounter - Yvonne Schaeffer - 11/20/2024 1:45 PM EDT Tc from pt requesting to rescheduled appointment Appointment type - Telephone Visit Jania notes - ENTERTAINMENT DIRECTOR RV FD called @2:03 no answer lvm Provider - Karen Marin documented in this encounter Plan of Treatment Upcoming Encounters Date Type Department Care Team (Late st Contact Info) Description 12/06/2024 3:30 PM EDT Medication Management [facility] [address] [place] [phone] Camelia Eagle, PharmD [address] [place] [address] 12/08/2024 2:00 PM EDT Telemedicine [facility] [address] [place] [phone] Karen Marin, LETICIA 01/23/2025 11:00 AM EDT Office Visit [facility] [place] [address] Name, MD Rob [facility] [place] [address] documented as of this encounter Goals Goal Patient Goal Type Associated Problems Recent Progress Patient-Stated? Author Blood Pressure < 140/90 Blood Pressure 120/69(2024 2:16 PM EDT) No Shirley Cooper PharmD Note: Keep log of BP values to be reviewed at follow-up or sooner if needed. Take your medication every day Lifestyle No Shirley Cooper, Chacha documented as of this encounter Visit Diagnoses Not on filedocumented in this encounter Additional Health Concerns Assessment Noted Time PHQ-9 Depression Total Score: 23 023 11:06 AM EST documented as of this encounter Care Teams Wig Dresser Relationship Specialty Start Date End Date NameRob MD [facility] [place] [address] PCP - General Family Medicine 01/31/18 [facility] 09/18/24 documented as of this encounter
[2024-11-22 16:25] LABS: Anion Gap 16 (12-20); Blood Urea Nitrogen 24 mg/dL (9-16); Calcium 10.2 mg/dL (8.4-10.2); Carbon Dioxide 29 mmol/L (22-29); Chloride 101 mmol/L (96-108); Estimated Glomerular Filt Rate > 60; Glucose Random 328 mg/dL (60-115); Potassium 5.5 mmol/L (3.3-5.1); Sodium 140 mmol/L (135-145)
[2024-11-22 16:43] LABS: Creatinine Urine 45.81 mg/dL; Microalbum/Creatinine Ratio Ur 34.9 ug/mg cr (<30)
== END 2024-11-22 14:45 | disposition home or self-care (01) ==
LOC: HO.HHCL 14:44
PROVIDERS: Visit Provider Internal Medicine Geriatric Medicine
DX: E11.65 Type 2 diabetes mellitus with hyperglycemia (principal); Z79.4 Long term (current) use of insulin
CPT/HCPCS: 36415; 80048; 82043; 82570

== ENCOUNTER 2024-12-06 16:12 | Outpatient (REF) | payer MEDICARE, SELFPAY ==
--- OUTSIDE RECORDS SUMMARY | 2024-12-06 18:06 | XMS_ITS | Encounter Summary ---
Author Organization [employer] Address [address] [place] [address] Care Team Providers Care Semaphore Operator Name Role Phone Name, Rob IBARRA Primary Care Provider Camelia Eagle PharmD Unavailable [phone] Reason for Visit * Reason Onset Date Comments Hospital Follow-up 02/17/2024 Encounter Details Date Type Department Care Team (Late st Contact Info) Description 02/17/2024 Telephone [facility] MEDICINE [address] [place], [place] [phone] Name, MD Rob [address] [place] [address] Hospital Follow-up Social History Tobacco Use Types Packs/Day Years [...] your housing situation today? I have chasity edy 02/18/[address] you li [...] Answer Date Recorded Patient Health Questionnaire-2 Score 6 06/18/2023 Internet Access Answer Date Recorded Internet Access [...] encounter Miscellaneous Notes * Telephone Encounter - Anay Zamora - 02/17/2024 4:26 PM EDT Tc from pt daughter requesting an HDF appt from a Stroke [facility] Dates admitted: 01/31/24 Discharge: 02/16/24 Please contact pt daughter @ [phone] documented in this encounter Plan of Treatment Upcoming Encounters Date Type Department Care Team (Late st Contact Info) Description 12/08/2024 2:00 PM EDT Telemedicine [facility] MEDICINE [address] [place] [phone] Karen Marin RN 12/27/2024 3:00 PM EDT Medication Management [facility] MED[facility]INE [address] [place] [phone] Camelia Eagle, Chacha [address] [place] [address] 01/23/2025 11:00 AM EDT Office Visit [facility] MED[facility]INE [address] [place] [phone] Name, MD Rob [address] [place] [address] documented as of this encounter Goals Goal Patient Goal Type Associated Problems Recent Progress Patient-Stated? Author Blood Pressure < 140/90 Blood Pressure 121/88(2024 4:01 PM EDT) No Shirley Cooper PharmD Note: Keep log of BP values to be reviewed at follow-up or sooner if needed. Take your medication every day Lifestyle No Shirley Cooper, PharmD documented as of this encounter Visit Diagnoses Not on filedocumented in this encounter Additional Health Concerns Assessment Noted Time PHQ-9 Depression Total Score: 23 023 11:06 AM EST documented as of this encounter Care Teams Semaphore Operator Relationship Specialty Start Date End Date Name, MD Rob [address] [place] [address] PCP - General Family Medicine 01/31/18 Camelia Eagle PharmD [address] [place] [address] Pharmacist Internal Medicine [facility] documented as of this encounter
[2024-12-06 18:27] LABS: Anion Gap 9 (12-20); Blood Urea Nitrogen 21 mg/dL (9-16); Calcium 9.6 mg/dL (8.4-10.2); Carbon Dioxide 28 mmol/L (22-29); Chloride 108 mmol/L (96-108); Estimated Glomerular Filt Rate > 60; Glucose Random 162 mg/dL (60-115); Potassium 4.4 mmol/L (3.3-5.1); Sodium 141 mmol/L (135-145)
== END 2024-12-06 16:13 | disposition home or self-care (01) ==
LOC: HO.HHCL 16:12
PROVIDERS: Visit Provider Internal Medicine Geriatric Medicine
DX: Z79.4 Long term (current) use of insulin (principal); E11.65 Type 2 diabetes mellitus with hyperglycemia; I10 Essential (primary) hypertension
CPT/HCPCS: 36415; 80048

== ENCOUNTER 2025-03-13 14:41 | Outpatient (REF) | payer MEDICARE, SELFPAY ==
--- NOTE | ~2025-03-13 | MM_ITS ---
EXAMINATION: MM SCREENING DIGITAL BREAST TOMOSYNTHESIS, BILATERAL CLINICAL INFORMATION: Screening. Asymptomatic. COMPARISON: Mammography: Comparison is made with available priors TECHNIQUE: Digital breast mammography with tomosynthesis is performed in both the craniocaudal and mediolateral oblique views along with computer-aided detection (CAD). FINDINGS: There are scattered areas of fibroglandular density (ACR BI-RADS breast composition Category b). Left: There are no significant masses, abnormal calcifications, or other abnormalities. Right: Grouped calcifications upper outer breast middle to posterior depth. Asymmetry medial breast posterior depth CC view with associated coarse heterogeneous and dystrophic calcifications. MM/MM tomosynthesis screening BI IMPRESSION: Additional imaging is recommended ASSESSMENT: BI-RADS BI-RADS 0 - Incomplete: Needs additional Imaging. RECOMMENDATION: 1. Additional views of the right breast. 2. Targeted ultrasound if warranted after review of the additional views. 3. Radiology department staff will contact the patient for additional imaging. Additional Imaging required This examination should not preclude the clinical evaluation of a suspicious palpable abnormality. This patient's information was entered into a reminder system with a target due date for their next mammogram. Electronically signed by: Ce Soto DO 03/14/2025 04:29 PM EDT
--- OUTSIDE RECORDS SUMMARY | 2025-03-13 17:51 | XMS_ITS | Encounter Summary ---
Author Organization [employer] Address [address] [place] [address] Care Team Providers Care It Infrastructure Manager Name Role Phone Name, Rob IBARRA Primary Care Provider [phone] Camelia Eagle PharmD Unavailable [phone] Reason for Visit * Reason Onset Date Comments Med Refill 04/17/2024 Encounter Details Date Type Department Care Team (Late st Contact Info) Description 04/17/2024 Telephone [facility] MED[facility]INE [address] [place] [address] Name, MD Rob [address] [place] [address] Med Refill Social History Tobacco Use Types Packs/Day Years [...] encounter Miscellaneous Notes * Telephone Encounter - Yvonne Schaeffer - 04/17/2024 3:04 PM EDT TC from pt requesting medication refill. Medications needing refill : metFORMIN (Glucophage) 500 MG tablet To be sent to: [facility] documented in this encounter Plan of Treatment Upcoming Encounters Date Type Department Care Team (Late st Contact Info) Description 03/21/2025 2:00 PM EDT Medication Management [facility] [address] [place] [phone] Camelia Eagle, PharmD [address] [place] [address] 03/21/2025 2:30 PM EDT Immunization [address] [address] 03/30/2025 2:00 PM EDT Telemedicine [address] [address] Karen Marin, LETICIA 2025 9:00 AM EDT Medication Management [address] [address] [place] [address] 04/20/2025 11:15 AM EDT Office Visit [facility] [place] [address] Name, [place] [address] documented as of this encounter Goals Goal Patient Goal Type Associated Problems Recent Progress Patient-Stated? Author Blood Pressure < 140/90 Blood Pressure 118/56(2024 11:20 AM EDT) No Shirley Cooper PharmD Note: Keep log of BP values to be reviewed at follow-up or sooner if needed. Take your medication every day Lifestyle No Shirley Cooper PharmD documented as of this encounter Visit Diagnoses Not on filedocumented in this encounter Additional Health Concerns Assessment Noted Time PHQ-9 Depression Total Score: 23 023 11:06 AM EST documented as of this encounter Care Teams It Infrastructure Manager Relationship Specialty Start Date [place] [address] PCP - General Family Medicine 01/31/18 [place] [address] Pharmacist Internal Medicine [facility] documented as of this encounter
--- OUTSIDE RECORDS SUMMARY | 2025-03-13 17:51 | XMS_ITS | Encounter Summary ---
Author Organization [employer] Address [address] [place] [address] Care Team Providers Care Harpoon Engagement Planning Operator Name Role Phone Name, Rob IBARRA Primary Care Provider Camelia Eagle PharmD Unavailable [phone] Reason for Visit * Reason Onset Date Comments Hospital Follow-up 04/11/2024 Encounter Details Date Type Department Care Team ([facility] st Contact Info) Description 04/11/2024 Telephone [facility] MEDICINE [address] [place], [place] [phone] Name, MD Rob [address] [place] [address] Hospital Follow-up Social History Tobacco Use Types [...] your housing situation today? I have chasity sing 02/18/[address] you li [...] encounter Miscellaneous Notes * Telephone Encounter - Heather Hung - 04/11/2024 10:28 AM EDT Tc from pt grandchild requesting a HDF appt. Hospital[facility] Date of admission: 03/10/24 Discharge date: 04/07/24 Diagnosed: leg was amputated documented in this encounter Plan of Treatment Upcoming Encounters Date Type Department Care Team (Late st Contact Info) Description 03/21/2025 2:00 PM EDT Medication Management [facility] MEDICINE [address] [place] [phone] Camelia Eagle, PharmD [address] [place] [phone] 03/21/2025 2:30 PM EDT Immunization [facility] MEDICINE [address] [place] [address] 03/30/2025 2:00 PM EDT Telemedicine [address] [address] Karen Marin RN 2025 9:00 AM EDT Medication Management [facility] [place] [address] Camelia Eagle PharmD [facility] [place] [address] 04/20/2025 11:15 AM EDT Office Visit [facility] [place] [address] NameRob MD [facility] [place] [address] documented as of this encounter Goals Goal Patient Goal Type Associated Problems Recent Progress Patient-Stated? Author Blood Pressure < 140/90 Blood Pressure 118/56(2024 11:20 AM EDT) Shirley Neal PharmD Note: Keep log of BP values to be reviewed at follow-up or sooner if needed. Take your medication every day Lifestyle No Shirley Cooper PharmD documented as of this encounter Visit Diagnoses Not on filedocumented in this encounter Additional Health Concerns Assessment Noted Time PHQ-9 Depression Total Score: 23 023 11:06 AM EST documented as of this encounter Care Teams Harpoon Engagement Planning Operator Relationship Specialty Start Date End Date Rob Sunshine MD [facility] [place] [address] PCP - General Family Medicine 01/31/18 [place] [address] Pharmacist Internal Medicine 11/22/24 [facility] 09/18/24 documented as of this encounter
--- OUTSIDE RECORDS SUMMARY | 2025-03-13 17:51 | XMS_ITS | Encounter Summary ---
Author Organization [employer] Address [address] [place] [address] Care Team Providers Care Nurse Practitioner Hospitalist Name Role Phone Name, Rob IBARRA Primary Care Provider [phone] Camelia Eagle PharmD Unavailable [phone] Reason for Visit * Reason Onset Date Comments PT-1 09/01/2024 Encounter Details Date Type Department Care Team (Late st Contact Info) Description 09/01/2024 Telephone [facility] [address] [place], [place] [phone] Name, MD Rob [address] [place] [address] PT-1 (/) Social History Tobacco Use Types Packs/Day Years [...] encounter Miscellaneous Notes * Telephone Encounter - [place] - 09/01/2024 1:29 PM EDT Patient calling requesting PT1 Home Address verified: Y/N: No Provider name or facility name: [facility] [address], [place] [address] Escort needed: Y/N: Yes Do you have a wheelchair: Y/N: Yes If yes- Manual or electric: Manual Visits: (1 x Month)) Contact Pt Granddaughter at [phone] documented in this encounter Plan of Treatment Upcoming Encounters Date Type Department Care Team (Late st Contact Info) Description 03/21/2025 2:00 PM EDT Medication Management [facility] [address] [place] [address] Camelia Eagle, PharmD 230 [place] [address] 03/21/2025 2:30 PM EDT Immunization [facility] [address] [place] [address] 03/30/2025 2:00 PM EDT Telemedicine [facility] [place] [address] Karen Marin, RN 2025 9:00 AM EDT Medication Management [facility] [place] [address] [place] [address] 04/20/2025 11:15 AM EDT Office Visit [facility] [place] [address] Name, MD Rob [facility] [place] documented as of this encounter Goals Goal [...] documented as of this encounter Care Teams Nurse Practitioner Hospitalist Relationship Specialty Start Date End Date Name, MD Rob [facility] [place] PCP - General Family Medicine 01/31/18 Camelia Eagle PharmD [facility] [place] Pharmacist Internal Medicine 11/22/24 [facility] documented as of this encounter
--- OUTSIDE RECORDS SUMMARY | 2025-03-13 17:51 | XMS_ITS | Encounter Summary ---
Author Organization [employer] Address [address] 7t [place] [address] Care Team Providers Care Byproducts Maker Name Role Phone Name, Rob IBARRA Primary Care Provider [phone] Camelia Eagle PharmD Unavailable [phone] Reason for Visit * Reason Onset Date Comments Call Back Request 07/06/2023 Encounter Details Date Type Department Care Team ([facility] st Contact Info) Description 07/06/2023 Telephone [facility] 230 [place], [place] [phone] Name, MD Rob 230 [place] [address] Call Back Request Social History Tobacco Use Types Packs/Day [...] is your housing situation today? I have housing today, but I am worried about losing housing in the future 03/30/[address] you li ve. Do you have problems with any of the following? Pests such as bugs, ants, or mice 03/30/2023 Food Insecurity Answer Date Recorded Within the past 12 months, y ou worried that your food would run out before you got money to buy more: Often true 04/16/2023 Within the past 12 months,th e food you bought just didn't last and you didn't have enough money to get more: Often true Transportation Answer Date Recorded In the past 12 months, has l ack of transportation kept you from medical appts, meetings, work or from getting things needed for daily living? No 04/16/2023 Utilities Answer Date Recorded In the past 12 months, has t he electric, gas, oil or water company threatened to shut off services in your home? No 04/16/2023 Depression Answer Date Recorded Patient Health Questionnaire-2 Score 6 06/18/2023 Comments Unknown Sex and Gender Information Value Date Recorded Sex Assigned at Female 04/20/2022 10:17 AM EDT Legal Sex Female 10:17 AM EDT Gender Identity Female 04/20/2022 10:17 AM EDT Sexual Orientation Straight 04/20/2022 10 :17 AM EDT documented as of this encounter Miscellaneous Notes * Telephone Encounter - Lolly Sotomayor - 07/06/2023 12:51 PM EST Tc from [facility] with [facility] requesting to speak with a nurse in regards to pt medication list. Please contact ezio at [phone] documented in this encounter Plan of Treatment Upcoming Encounters Date Type Department Care Team ([facility] st Contact Info) Description 03/21/2025 2:00 PM EDT Medication Management [facility] [address] [place] [address] Camelia Eagle PharmD 230 [place] [address] 03/21/2025 2:30 PM EDT Immunization [address] [address] 03/30/2025 2:00 PM EDT Telemedicine [address] [address] Karen Marin RN 2025 9:00 AM EDT Medication Management [address] [address] Camelia Eagle PharmD [facility] [address] 04/20/2025 11:15 AM EDT Office Visit [facility] [place] [address] Name, MD Rob [facility] [place] [address] documented as of this encounter Goals Goal [...] documented as of this encounter Care Teams Byproducts Maker Relationship Specialty Start Date End Date Name, [place] [address] PCP - General Family Medicine 01/31/18 Camelia Eagle PharmD [facility] [place] [address] Pharmacist Internal Medicine 11/22/24 [facility] documented as of this encounter
--- OUTSIDE RECORDS SUMMARY | 2025-03-13 17:51 | XMS_ITS | Encounter Summary ---
Author Organization [employer] Address [address] 7t [place] [address] Care Team Providers Care Bar Hostess Name Role Phone Name, Rob IBARRA Primary Care Provider [phone] Camelia Eagle PharmD Unavailable Reason for Visit * Reason Onset Date Comments paperwork 08/18/2022 Encounter Details Date Type Department Care Team (Late st Contact Info) Description 08/18/2022 Telephone [facility] 230 [place] [address] Name, MD Rob 230 [place] [address] paperwork Social History Tobacco Use Types Packs/Day Years Used Date Smoking Tobacco: Every Day Cigarettes Comments Unknown Sex and Gender Information Value Date Recorded Sex Assigned at Female 04/20/2022 10:17 AM EDT Legal Sex Female 10:17 AM EDT Gender Identity Female 04/20/2022 10:17 AM EDT Sexual Orientation Straight 04/20/2022 10 :17 AM EDT COVID-19 Exposure Response Date Recorded In the last 10 days, have yo u been in contact with someone who was confirmed or suspected to have Coronavirus/COVID-19? No / Unsure 07/28/2022 1:27 PM EST documented as of this encounter Miscellaneous Notes * Telephone Encounter - Aileen Schaeffer - 08/18/2022 3:16 PM EST First documents for this order were signed at the beginning of the year but they sent more paperwork asking for more information. Forms are on your folder. Thank you. * Telephone Encounter - Anay Zamora - 08/18/2022 2:30 PM EST Tc from [facility], requesting status on some document that were sent over to facility regarding pt. Andrea he had spoken with someone named Aileen. Flaker Tender tried transferring over to medical records, Andrea informed that medical records did not answer messages left. Please contact Andrea at [phone] documented in this encounter Plan of Treatment Upcoming Encounters Date Type Department Care Team (Late st Contact Info) Description 03/21/2025 2:00 PM EDT Medication Management [address] [address] Camelia Eagle PharmD [address] [place] [address] 03/21/2025 2:30 PM EDT Immunization [address] [address] 03/30/2025 2:00 PM EDT Telemedicine [address] [address] Karen Marin, RN 2025 9:00 AM EDT Medication Management [address] [address] Camelia Eagle, PharmD [address] [place] [address] 04/20/2025 11:15 AM EDT Office Visit [address] [address] Jong, MD Rob [address] [place] [address] documented as of this encounter Visit Diagnoses Not on filedocumented in this encounter Care Teams Bar Hostess Relationship Specialty Start Date End Date Name, MD Rob 230 [place], [place] [phone] PCP - General Family Medicine 01/31/18 Camelia Eagle PharmD 230 [place] [address] Pharmacist Internal Medicine 11/22/24 [facility] 09/18/24 documented as of this encounter
--- OUTSIDE RECORDS SUMMARY | 2025-03-13 17:51 | XMS_ITS | Encounter Summary ---
Author Organization [employer] Address [address] 7t [place] [address] Care Team Providers Care Middle Stitcher Name Role Phone Name, Rob IBARRA Primary Care Provider [phone] Camelia Eagle PharmD Unavailable [phone] Reason for Visit * Reason Comments Med Refill Encounter Details Date Type Department Care Team (Late st Contact Info) Description 06/29/2023 Refill [facility] 230 [place] [address] Name, MD Rob 230 [place] [address] Peripheral vascular disease (CMS/HCC) Social History Tobacco Use Types Packs/Day Years [...] encounter Miscellaneous Notes * Telephone Encounter - Yasmeen Bliss RN - 06/29/2023 1:43 PM EST T/C to [facility] Elaine [phone]. Advised pcp ordered pt to take 5mg warfarin on M and Fr/ 2.5mg all other days of the week and to repeat INR in one week. Advised pcp sent rx for Tramadol. Elaine verbalized understanding. documented in this encounter Plan of Treatment Upcoming Encounters Date Type Department Care Team (Late st Contact Info) Description 03/21/2025 2:00 PM EDT Medication Management [facility] [address] [place] [address] Camelia Eagle, PharmD [address] [place] [address] 03/21/2025 2:30 PM EDT Immunization [address] [address] 03/30/2025 2:00 PM EDT Telemedicine [address] [address] Karen Marin RN 2025 9:00 AM EDT Medication Management [facility] [place] [address] [place] [address] 04/20/2025 11:15 AM EDT Office Visit [facility] [place] [address] Name, [place] [address] documented as of this encounter Visit Diagnoses Diagnosis Peripheral vascular disease (CMS/HCC) Unspecified peripheral vascular disease documented in this encounter Additional Health Concerns Assessment Noted Time PHQ-9 Depression Total Score: 23 023 11:06 AM EST documented as of this encounter Care Teams Middle Stitcher Relationship Specialty Start Date End Date Name[place] [address] PCP - General Family Medicine 01/31/18 [place] [address] Pharmacist Internal Medicine 11/22/24 [facility] 09/18/24 documented as of this encounter
--- OUTSIDE RECORDS SUMMARY | 2025-03-13 17:51 | XMS_ITS | Encounter Summary ---
Author Organization [employer] Address [address] 7t [place] [address] Care Team Providers Care Track Repair Supervisor Name Role Phone Name, Rob IBARRA Primary Care Provider [phone] Camelia Eagle PharmD Unavailable [phone] Reason for Visit * Reason Onset Date Comments Durable Medical Equipment 07/02/2023 Encounter Details Date Type Department Care Team (Late st Contact Info) Description 07/02/2023 Telephone [facility] 230 [place] [address] Name, MD Rob 230 [place] [address] Durable Medical Equipment Social History Tobacco Use Types Packs/Day Years [...] encounter Miscellaneous Notes * Telephone Encounter - Lloly Sotomayor - 07/02/2023 4:06 PM EST Tc from emilee (pt physical therapist) requesting script for 16 inch wheelchair with elevating leg rest and a right AFO to be sent to [facility]. Any questions, contact emilee at [phone] documented in this encounter Plan of Treatment Upcoming Encounters Date Type Department Care Team (Late st Contact Info) Description 03/21/2025 2:00 PM EDT Medication Management [facility] [address] [place] [address] Camelia Eagle, PharmD [address] [place] [address] 03/21/2025 2:30 PM EDT Immunization [address] [address] 03/30/2025 2:00 PM EDT Telemedicine [address] [address] Karen Marin, LETICIA 2025 9:00 AM EDT Medication Management [address] [address] Camelia Eagle PharmD [address] [facility] [place] [address] 04/20/2025 11:15 AM EDT Office Visit [facility] Britt [facility] [place] [address] Name, [place] [address] documented as of this encounter Visit Diagnoses Not on filedocumented in this encounter Additional Health Concerns Assessment Noted Time PHQ-9 Depression Total Score: 23 023 11:06 AM EST documented as of this encounter Care Teams Track Repair Supervisor Relationship Specialty Start Date End Date Name, MD Rob Britt [facility] [place] [address] PCP - General Family Medicine 01/31/18 Camelia Eagle PharmD Britt [facility] [place] [address] Pharmacist Internal Medicine 11/22/24 [facility] 09/18/24 documented as of this encounter
--- OUTSIDE RECORDS SUMMARY | 2025-03-13 17:51 | XMS_ITS | Encounter Summary ---
Author Organization [employer] Address [address] 7t [place] [address] Care Team Providers Care Grinder Set Up Operator Universal Name Role Phone Name, Rob IBARRA Primary Care Provider [phone] Camelia Eagle PharmD Unavailable [phone] Reason for Visit * Reason Onset Date Comments PT-1 08/17/2024 Encounter Details Date Type Department Care Team (Late st Contact Info) Description 08/17/2024 Telephone [facility] 230 [place], [place] [phone] Name, MD Rob 230 [place] [address] PT-1 Social History Tobacco Use Types Packs/Day Years [...] encounter Miscellaneous Notes * Telephone Encounter - Balaji Carmona - 08/17/2024 11:23 AM EST Patient calling requesting PT1 Home Address verified: Y/N: Yes Provider name or facility name: [facility] [address] [place] [address] Escort needed: Y/N: Yes Do you have a wheelchair: Y/N: Yes If yes- Manual or electric: Manual Visits: (amount of visits) ( x monthly, weekly, daily) 1 time a month Patient calling requesting PT1 Home Address verified: Y/N: Yes Provider name or facility name: [address] [address] Escort needed: Y/N: Yes Do you have a wheelchair: Y/N: Yes If yes- Manual or electric: Manual Visits: (amount of visits) ( x monthly, weekly, daily) 1 a month documented in this encounter Plan of Treatment Upcoming Encounters Date Type Department Care Team (Late st Contact Info) Description 03/21/2025 2:00 PM EDT Medication Management [facility] [address] [place] [address] [place] [address] 03/21/2025 2:30 PM EDT Immunization [facility] [place] [address] 03/30/2025 2:00 PM EDT Telemedicine [facility] [place] [address] Karen Marin RN 2025 9:00 AM EDT Medication Management [facility] [place] [address] Camelia Eagle PharmD [place] 04/20/2025 11:15 AM EDT Office Visit [facility] [place] [address] Name, MD Rob [facility] [place] documented as of this encounter Goals [...] documented as of this encounter Care Teams Grinder Set Up Operator Universal Relationship Specialty Start Date End Date Rob Sunshine MD [place] PCP - General Family Medicine 01/31/18 [place] [address] Pharmacist Internal Medicine 11/22/24 [facility] documented as of this encounter
--- OUTSIDE RECORDS SUMMARY | 2025-03-13 17:51 | XMS_ITS | Encounter Summary ---
Author Organization [employer] Address [address] 7t [place] [address] Care Team Providers Care Photovoltaic Technician Name Role Phone Name, Rob IBARRA Primary Care Provider [phone] Camelia Eagle PharmD Unavailable [phone] Encounter Details Date Type Department Care Team ([facility] st Contact Info) Description 07/02/2023 Telephone [facility] 230 [place] [address] Name, MD Rob 230 [place] [address] Social History Tobacco Use Types Packs/Day Years [...] encounter Miscellaneous Notes * Telephone Encounter - Yesika Zelaya - 07/02/2023 9:45 AM EST Tc from [facility] with [facility] documented in this encounter Plan of Treatment Upcoming Encounters Date Type Department Care Team (Late st Contact Info) Description 03/21/2025 2:00 PM EDT Medication Management [address] [address] Camelia Eagle, PharmD [address] [place] [address] 03/21/2025 2:30 PM EDT Immunization [address] [address] 03/30/2025 2:00 PM EDT Telemedicine [address] [address] Karen Marin, RN 2025 9:00 AM EDT Medication Management [address] [address] Camelia Eagle, PharmD [address] [place] [address] 04/20/2025 11:15 AM EDT Office Visit [facility] 230 [place] [address] Name, [place] [address] documented as of this encounter Visit Diagnoses Not on filedocumented in this encounter Additional Health Concerns Assessment Noted Time PHQ-9 Depression Total Score: 23 023 11:06 AM EST documented as of this encounter Care Teams Photovoltaic Technician Relationship Specialty Start Date End Date Name, [place] [address] PCP - General Family Medicine 01/31/18 Camelia Eagle PharmD [address] [place] [address] Pharmacist Internal Medicine 11/22/24 [facility] 09/18/24 documented as of this encounter
--- OUTSIDE RECORDS SUMMARY | 2025-03-13 17:51 | XMS_ITS | Encounter Summary ---
Author Organization [employer] Address [address] 7t [place] [address] Care Team Providers Care Language Arts Teacher Name Role Phone Name, Rob IBARRA Primary Care Provider [phone] Camelia Eagle PharmD Unavailable [phone] Reason for Visit * Reason Onset Date Comments ER Follow-up 07/13/2023 Encounter Details Date Type Department Care Team (Late st Contact Info) Description 07/13/2023 Telephone [facility] 230 [place], [place] [phone] Name, MD Rob 230 [place] [address] ER Follow-up Social History Tobacco Use Types Packs/Day [...] encounter Miscellaneous Notes * Telephone Encounter - Jacklyn Marsh RN - 07/13/2023 4:18 PM EST Please review and advise if needed for below message, Last time inquiry, pt. Is at [facility] ED, No discharge summery available yet. * Telephone Encounter - Yesika Zelaya - 07/13/2023 12:36 PM EST Tc from [facility] with [facility] calling to inform PCP another nurse send the pt to the hospital due to blood clog, [facility] also informed that they have a contract with the pt, if pt don't take her medication [facility] can finish the contract. calling to report ED visit on : Date: 07/13/2023 Hospital: [facility] Seen for: Blood Clog in her legs Patient advised will forward to team nurse for follow up documented in this encounter Plan of Treatment Upcoming Encounters Date Type Department Care Team (Late st Contact Info) Description 03/21/2025 2:00 PM EDT Medication Management [facility] [address] [place] [address] Camelia Eagle PharmD Britt [facility] [place] [address] 03/21/2025 2:30 PM EDT Immunization [facility] Britt [facility] [place] [address] 03/30/2025 2:00 PM EDT [address]medicine [address] [place] [address] Karen Marin, LETICIA 2025 9:00 AM EDT Medication Management [address] [place] [address] Camelia Eagle PharmD Britt [facility] [address] 04/20/2025 11:15 AM EDT Office Visit [address] [place] [address] Name, MD Rob Britt [facility] [place] documented as of this encounter Goals [...] documented as of this encounter Care Teams Language Arts Teacher Relationship Specialty Start Date End [place] [address] PCP - General Family Medicine 01/31/18 Camelia Eagle PharmD Britt [facility] [place] [address] Pharmacist Internal Medicine 11/22/[facility] documented as of this encounter
--- OUTSIDE RECORDS SUMMARY | 2025-03-13 17:51 | XMS_ITS | Encounter Summary ---
Author Organization [employer] Address [address] 7t [place] [address] Care Team Providers Care Pin Setter Name Role Phone Name, Rob IBARRA Primary Care Provider [phone] Camelia Eagle PharmD Unavailable Reason for Visit * Reason Onset Date Comments Med Refill 07/23/2023 Encounter Details Date Type Department Care Team (Late st Contact Info) Description 07/23/2023 Refill [facility] MED[facility]INE [address] [place], [place] [phone] Name, MD Rob [address] [place] [address] DJD (degenerative joint disease), lumbosacral Social History Tobacco Use Types Packs/Day Years [...] encounter Miscellaneous Notes * Telephone Encounter - Rob Sunshine MD - 07/23/2023 11:06 AM EST She is hospitalized at [facility] now * Telephone Encounter - Yesika Zelaya - 07/23/2023 10:38 AM EST TC from pharmacy requesting medication refill. Medications needing refill : traMADol (Ultram) 50 MG tablet To be sent to: [facility] documented in this encounter Plan of Treatment Upcoming Encounters Date Type Department Care Team (Late st Contact Info) Description 03/21/2025 2:00 PM EDT Medication Management [facility] MEDICINE [address] [place] [address] Camelia Eagle, PharmD [address] [place] [address] 03/21/2025 2:30 PM EDT Immunization [facility] MEDICINE [address] [place] [address] 03/30/2025 2:00 PM EDT Telemedicine [facility] [place] [address] Karen Marin, RN 2025 9:00 AM EDT Medication Management [address] [place] [address] Camelia Eagle PharmD [facility] [place] [address] 04/20/2025 11:15 AM EDT Office Visit [facility] [place] [address] [place] [address] documented as of this encounter Goals Goal Patient Goal Type Associated Problems Recent Progress Patient-Stated? Author Blood Pressure < 140/90 Blood Pressure 118/56(2024 11:20 AM EDT) No Shirley Cooper PharmD Note: Keep log of BP values to be reviewed at follow-up or sooner if needed. 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
--- OUTSIDE RECORDS SUMMARY | 2025-03-13 17:51 | XMS_ITS | Encounter Summary ---
Author Organization [employer] Address [address] 7t [place] [address] Care Team Providers Care Bench Tool Maker Name Role Phone Name, Rob IBARRA Primary Care Provider [phone] Camelia Eagle PharmD Unavailable Reason for Visit * Reason Onset Date Comments call back 08/20/2022 Encounter Details Date Type Department Care Team ([facility] st Contact Info) Description 08/20/2022 Telephone [facility] MEDICINE [address] [place] [address] Name, MD Rob [address] [place] [address] call back Social History Tobacco Use Types Packs/Day Years [...] encounter Miscellaneous Notes * Telephone Encounter - Terrencepriscilla Alonsoos - 08/20/2022 9:56 AM EST Tc from humberto with [facility] requesting a call back regarding pt. Please contact humberto at [phone] documented in this encounter Plan of Treatment Upcoming Encounters Date Type Department Care Team ([facility] st Contact Info) Description 03/21/2025 2:00 PM EDT Medication Management [address] [address] Camelia Eagle PharmD [address] [place] [address] 03/21/2025 2:30 PM EDT Immunization [address] [address] 03/30/2025 2:00 PM EDT Telemedicine [address] [address] Karen Marin, RN 2025 9:00 AM EDT Medication Management [address] [address] Camelia Eagle PharmD [address] [place] [address] 04/20/2025 11:15 AM EDT Office Visit [address] [place] [address] Name, [place] [address] documented as of this encounter Visit Diagnoses Not on filedocumented in this encounter Care Teams Bench Tool Maker Relationship Specialty Start Date End Date Name, [place] [address] PCP - General Family Medicine 01/31/18 Camelia Eagle PharmD [address] [place] [address] Pharmacist Internal Medicine 11/22/24 [facility] 09/18/24 documented as of this encounter
--- OUTSIDE RECORDS SUMMARY | 2025-03-13 17:51 | XMS_ITS | Encounter Summary ---
Author Organization [employer] Address [address] [address] 7t [place] [address] Care Team Providers Care Ice Maker Name Role Phone Name, Rob IBARRA Primary Care Provider [phone] Camelia Eagle PharmD Unavailable [phone] Reason for Visit * Reason Onset Date Comments Hospital Follow-up 02/17/2024 Encounter Details Date Type Department Care Team (Late st Contact Info) Description 02/17/2024 Telephone [facility] MEDICINE 230 [place], [place] [phone] Name, MD Rob 230 [place] [address] Hospital Follow-up Social History Tobacco Use Types [...] requesting an HDF appt from a Stroke [facility] Dates admitted: 01/31/24 Discharge: 02/16/24 Please contact pt daughter @ [phone] documented in this encounter Plan of Treatment Upcoming Encounters Date Type Department Care Team (Late st Contact Info) Description 03/21/2025 2:00 PM EDT Medication Management [facility] MEDICINE [address] [place] [address] Camelia Eagle, PharmD [address] [place] [address] 03/21/2025 2:30 PM EDT Immunization [facility] MEDICINE [address] [place] [address] 03/30/2025 2:00 PM EDT Telemedicine [address] [address] Karen Marin, RN 2025 9:00 AM EDT Medication Management [facility] [place] [address] [place] [address] 04/20/2025 11:15 AM EDT Office Visit [facility] [place] [address] [place] [address] documented as of this encounter Goals Goal [...] documented as of this encounter Care Teams Ice Maker Relationship Specialty Start Date End Date Rob Sunshine MD [facility] [place] [address] PCP - General Family Medicine 01/31/18 Camelia Eagle PharmD [facility] [place] [address] Pharmacist Internal Medicine 11/22/24 [facility] 09/18/24 documented as of this encounter
--- OUTSIDE RECORDS SUMMARY | 2025-03-13 17:51 | XMS_ITS | Encounter Summary ---
Author Organization [employer] Address [address] 7t [place] [address] Care Team Providers Care Exotic Dancer Name Role Phone Name, Rob IBARRA Primary Care Provider [phone] Camelia Eagle PharmD Unavailable [phone] Reason for Visit * Reason Onset Date Comments verbal orders 07/02/2023 Encounter Details Date Type Department Care Team ([facility] st Contact Info) Description 07/02/2023 Telephone [facility] MEDICINE 230 [place] [address] Name, MD Rob 230 [place] [address] verbal orders Social History Tobacco Use Types Packs/Day Years [...] Telephone Encounter - Jacklyn Marsh RN - 07/02/2023 4:37 PM EST T/c to noy (pt physical therapist) for OK for verbal order from PCP. Noy verbally agreed and understood. * Telephone Encounter - Jacklyn Marsh RN - 07/02/2023 4:27 PM EST Please review below message and advise for verbal order. * Telephone Encounter - Lolly Sotomayor - 07/02/2023 4:08 PM EST Tc from noy (pt physical therapist) requesting verbal orders for pt to receive social work due to pt current living and insurance situation. Please contact noy at [phone] documented in this encounter Plan of Treatment Upcoming Encounters Date Type Department Care Team (Late st Contact Info) Description 03/21/2025 2:00 PM EDT Medication Management [facility] [place] [address] [place] [address] 03/21/2025 2:30 PM EDT Immunization [place] [address] 03/30/2025 2:00 PM EDT Telemedicine [place] [address] Karen Marin, RN 2025 9:00 AM EDT Medication Management [facility] [place] [phone] Camelia Eagle PharmD [place] 04/20/2025 11:15 AM EDT Office Visit [place] [address] Name, [place] [address] documented as of this encounter Visit Diagnoses Not on filedocumented in this encounter Additional Health Concerns Assessment Noted Time PHQ-9 Depression Total Score: 23 023 11:06 AM EST documented as of this encounter Care Teams Exotic Dancer Relationship Specialty Start Date End Date Name, [place] [address] PCP - General Family Medicine 01/31/18 [place] [address] Pharmacist Internal Medicine 11/22/24 [facility] 09/18/24 documented as of this encounter
--- OUTSIDE RECORDS SUMMARY | 2025-03-13 17:51 | XMS_ITS | Encounter Summary ---
Author Organization [employer] Address [address] 7t [place] [address] Care Team Providers Care Coding Specialist Home Health Name Role Phone Name, Rob IBARRA Primary Care Provider [phone] Camelia Eagle PharmD Unavailable [phone] Encounter Details Date Type Department Care Team ([facility] st Contact Info) Description 07/23/2023 Telephone [facility] MEDICINE 230 [place] [address] Name, MD Rob 230 [place] [address] Social History Tobacco Use Types Packs/Day Years [...] AM EDT documented as of this encounter Plan of Treatment Upcoming Encounters Date Type Department Care Team (Late st Contact Info) Description 03/21/2025 2:00 PM EDT Medication Management [address] [address] Camelia Eagle, PharmD [address] [place] [address] 03/21/2025 2:30 PM EDT Immunization [address] [address] 03/30/2025 2:00 PM EDT Telemedicine [address] [address] Karen Marin, RN 2025 9:00 AM EDT Medication Management [address] [address] Camelia Eagle, PharmD [address] [place] [address] 04/20/2025 11:15 AM EDT Office Visit [address] [address] Name, MD Rob [address] [place] [address] documented as of this encounter Goals Goal [...] documented as of this encounter Care Teams Coding Specialist Home Health Relationship Specialty Start Date End Date Name, MD Rob 230 [place] [address] PCP - General Family Medicine 01/31/18 Camelia Eagle PharmD [address] [place] [address] Pharmacist Internal Medicine 11/22/24 [facility] 09/18/24 documented as of this encounter
--- OUTSIDE RECORDS SUMMARY | 2025-03-13 17:52 | XMS_ITS | Encounter Summary ---
Author Organization [employer] [facility] [employer] Address [address] 7t [place] [address] Care Team Providers Care Lead Front Desk Agent Name Role Phone Name, Rob IBARRA Primary Care Provider [phone] Camelia Eagle PharmD Unavailable [phone] Reason for Visit * Reason Onset Date Comments FYI 06/29/2023 Encounter Details Date Type Department Care Team ([facility] st Contact Info) Description 06/29/2023 Telephone [facility] MEDICINE 230 [place] [address] Name, MD Rob 230 [place] [address] FYI Social History Tobacco Use Types Packs/Day Years [...] encounter Miscellaneous Notes * Telephone Encounter - Austin Horne - 06/29/2023 11:27 AM EST Tc from Bekah CARMICHAEL leaving an FYI stating pt has missed her medication and she is being set up with [facility] pharmacy med delivery. If any questions you can contact Bekah at [phone]. documented in this encounter Plan of Treatment Upcoming Encounters Date Type Department Care Team (Late st Contact Info) Description 03/21/2025 2:00 PM EDT Medication Management [facility] MEDICINE [address] [place] [address] Camelia Eagle, PharmD [address] [place] [address] 03/21/2025 2:30 PM EDT Immunization [facility] [address] [place] [address] 03/30/2025 2:00 PM EDT Telemedicine [address] [address] Karen Marin, LETICIA 2025 9:00 AM EDT Medication Management [address] [address] Camelia Eagle PharmD [facility] [place] [address] 04/20/2025 11:15 AM EDT Office Visit [facility] [place] [address] Name, MD [place] [address] documented as of this encounter Visit Diagnoses Not on filedocumented in this encounter Additional Health Concerns Assessment Noted Time PHQ-9 Depression Total Score: 23 023 11:06 AM EST documented as of this encounter Care Teams Lead Front Desk Agent Relationship Specialty Start Date End Date Name, MD Rob [facility] [place] [address] PCP - General Family Medicine 01/31/18 Camelia Eagle PharmD [address] [place] [address] Pharmacist Internal Medicine 11/22/24 [facility] 09/18/24 documented as of this encounter
--- OUTSIDE RECORDS SUMMARY | 2025-03-13 17:52 | XMS_ITS | Encounter Summary ---
Author Organization [employer] Address [address] 7t [place] [address] Care Team Providers Care Tar Boiler Name Role Phone Name, Rob IBARRA Primary Care Provider [phone] Camelia Eagle PharmD Unavailable [phone] Reason for Visit * Reason Onset Date Comments Hospital Follow-up 06/01/2023 Encounter Details Date Type Department Care Team ([facility] st Contact Info) Description 06/01/2023 Telephone [facility] MEDICINE 230 [place], [place] [phone] Name, MD Rob 230 [place] [address] Hospital Follow-up Social History Tobacco Use Types Packs/Day Years Used Date Smoking Tobacco: Every Day Cigarettes Alcohol Use Standard Drinks/Week Comments Never 0 (1 standard drink = 0.6 oz pur e alcohol) Depression Answer Date Recorded Patient Health Questionnaire-9 Score 13 10/26/2022 Housing Stability Answer Date Recorded What is [...] Answer Date Recorded Patient Health Questionnaire-2 Score 4 10/26/2022 Comments Unknown Sex and Gender Information Value Date Recorded Sex Assigned at Female 04/20/2022 10:17 AM EDT Legal Sex Female 10:17 AM EDT Gender Identity Female 04/20/2022 10:17 AM EDT Sexual Orientation Straight 04/20/2022 10 :17 AM EDT documented as of this encounter Miscellaneous Notes * Telephone Encounter - Anay Zamora - 06/01/2023 2:33 PM EST Tc from [place] with [facility] stating pt went back yesterday to the Hospital unsure she was discharge. Hospital Discharges and Admission for [facility] Type of Visit: Hospital Admission Date of Admission/Visit: 05/19/23 Date of DischargeL 05/28/23 Facility: [facility] Diagnosis: periferal vascular desease Disposition: Discharged Home Follow-Up Actions Follow-Up Needed: Provider appointment Initial Contact Date: 05/31/23 DANIELLE Tomas placed outbound call to patient for HDF outreach. CC placing call to offer patient with an HDF appointment with provider. No answer at this time. Patient's name and were not confirmed. CC left detailed message educating patient on importance of following up with provider following an inpatient admission. Provided contact information requesting a call back in order to schedule the HDF appointment. Patient educated via voicemail on extended clinic hours on Mondays and Wednesdays, and Walk-In Urgent Care Located in [facility]. Patient provided with after-hours line for [facility], , which offer night time triage service and option to transfer to claim professional provider if needed. CC will request Discharge summaries to scan into chart. CC will place additional outreach call within 2-5 business days. Please contact Daughter @ [phone] Greek Speaker documented in this encounter Plan of Treatment Upcoming Encounters Date Type Department Care Team (Late st Contact Info) Description 03/21/2025 2:00 PM EDT Medication Management [facility] [place] [address] Camelia Eagle PharmD [facility] [place] [address] 03/21/2025 2:30 PM EDT Immunization [facility] [place] [address] 03/30/2025 2:00 PM EDT Telemedicine [facility] [place] [address] Karen Marin, LETICIA 2025 9:00 AM EDT Medication Management [facility] [place] [address] Camelia Eagle PharmD [facility] [place] [address] 04/20/2025 11:15 AM EDT Office Visit [facility] [place] [address] Name, MD Rob [facility] [place] [address] documented as of this encounter Visit Diagnoses Not on filedocumented in this encounter Additional Health Concerns Assessment Noted Time PHQ-9 Depression Total Score: 13 023 1:47 PM EDT documented as of this encounter Care Teams Tar Boiler Relationship Specialty Start Date End Date Name, [place] [address] PCP - General Family Medicine 01/31/18 Camelia Eagle PharmD [facility] [place] [address] Pharmacist Internal Medicine 11/22/24 [facility] 09/18/24 documented as of this encounter
--- OUTSIDE RECORDS SUMMARY | 2025-03-13 17:52 | XMS_ITS | Encounter Summary ---
Author Organization [employer] Address [address] [facility] [address] [address] [place] [address] Care Team Providers Care Die Try Out Worker Name Role Phone Name, Rob IBARRA Primary Care Provider [phone] Camelia Eagle PharmD Unavailable [phone] Reason for Visit * Reason Onset Date Comments Med Refill 04/25/2024 Encounter Details Date Type Department Care Team (Late st Contact Info) Description 04/25/2024 Refill [facility] [address] [place], [place] [phone] Name, MD Rob 230 [place] [address] Social History Tobacco Use Types Packs/Day Years [...] encounter Miscellaneous Notes * Telephone Encounter - Ashvin Freitas - 04/25/2024 9:06 AM EST Tc from pt request med refill oxyCODONE (Roxicodone) 5 MG immediate release tablet PCP Name documented in this encounter Plan of Treatment Upcoming Encounters Date Type Department Care Team (Late st Contact Info) Description 03/21/2025 2:00 PM EDT Medication Management [facility] MEDICINE [address] [place] [address] Camelia Eagle, PharmD [address] [place] [address] 03/21/2025 2:30 PM EDT Immunization [facility] MEDICINE [address] [place] [address] 03/30/2025 2:00 PM EDT Telemedicine [address] [address] Karen Marin, LETICIA 2025 9:00 AM EDT Medication Management [address] [address] Camelia Eagle PharmD [facility] [place] 04/20/2025 11:15 AM EDT Office Visit [facility] [place] [address] NameRob MD [facility] [address] documented as of this encounter Goals Goal [...] documented as of this encounter Care Teams Die Try Out Worker Relationship Specialty Start Date End Date NameRob MD [place] [address] PCP - General Family Medicine 01/31/18 Camelia Eagle PharmD [facility] [place] [address] Pharmacist Internal Medicine 11/22/24 [facility] documented as of this encounter
--- OUTSIDE RECORDS SUMMARY | 2025-03-13 17:52 | XMS_ITS | Encounter Summary ---
Author Organization [employer] Address [address] 7t [place] [address] Care Team Providers Care Informatics Spec Name Role Phone Name, Rob IBARRA Primary Care Provider [phone] Camelia Eagle PharmD Unavailable [phone] Reason for Visit * Reason Comments Med Refill Encounter Details Date Type Department Care Team ([facility] st Contact Info) Description 05/06/2023 Refill [facility] MEDICINE 230 [place], [place] [phone] Name, MD Rob 230 [place] [address] Peripheral vascular disease (CMS/HCC) Social History Tobacco [...] Description 03/21/2025 2:00 PM EDT Medication Management [address] [address] Camelia Eagle PharmD [address] [place] [address] 03/21/2025 2:30 PM EDT Immunization [address] [address] 03/30/2025 2:00 PM EDT Telemedicine [address] [address] Karen Marin, LETICIA 2025 9:00 AM EDT Medication Management [address] [address] Camelia Eagle, PharmD [address] [place] [address] 04/20/2025 11:15 AM EDT Office Visit [address] [address] Name, MD Rob [address] [place] [address] documented as of this encounter Visit Diagnoses Diagnosis Peripheral vascular disease (CMS/HCC) Unspecified peripheral vascular disease documented in this encounter Additional Health Concerns Assessment Noted Time PHQ-9 Depression Total Score: 13 023 1:47 PM EDT documented as of this encounter Care Teams Informatics Spec Relationship Specialty Start Date End Date Name, MD Rob 230 [place] [address] PCP - General Family Medicine 01/31/18 Camelia Eagle PharmD 230 [place] [address] Pharmacist Internal Medicine 11/22/24 [facility] 09/18/24 documented as of this encounter
--- OUTSIDE RECORDS SUMMARY | 2025-03-13 17:52 | XMS_ITS | Encounter Summary ---
Author Organization [employer] Address [address] [place] [address] Care Team Providers Care Induction Coordination Engineer Name Role Phone Name, Rob IBARRA Primary Care Provider [phone] Camelia Eagle PharmD Unavailable [phone] Encounter Details Date Type Department Care Team (Late st Contact Info) Description 03/08/2025 Refill [facility] [address] [place] [address] Name, MD Rob [address] [place] [address] Social History Tobacco Use Types Packs/Day Years Used Date Smoking Tobacco: Former Cigarettes Q uit: 06/21/2022 Alcohol Use Standard Drinks/Week Comments Never 0 [...] getting things needed for daily living? No 01/23/2025 Utilities Answer Date Recorded In the past [...] Description 03/21/2025 2:00 PM EDT Medication Management [address] [address] Camelia Eagle, PharmD [address] [place] [address] 03/21/2025 2:30 PM EDT Immunization [address] [address] 03/30/2025 2:00 PM EDT Telemedicine [address] [address] Karen Marin, RN 2025 9:00 AM EDT Medication Management [address] [address] Camelia Eagle, PharmD [address] [place] [address] 04/20/2025 11:15 AM EDT Office Visit [address] [address] Name, MD Rob [address] [place] [id number] documented as of this encounter Goals Goal Patient Goal Type Associated Problems Recent Progress Patient-Stated? Author Blood Pressure < 140/90 Blood Pressure 118/56(2024 11:20 AM EDT) Shirley Neal, Chacha Note: Keep log of BP values to be reviewed at follow-up or sooner if needed. Take your medication every day Lifestyle No Shirley Cooper PharmD documented as of this encounter Visit Diagnoses Not on filedocumented in this encounter Additional Health Concerns Assessment Noted Time PHQ-9 Depression Total Score: 23 023 11:06 AM EST documented as of this encounter Care Teams Induction Coordination Engineer Relationship Specialty Start Date End Date Name, MD Rob [address] [place] [address] PCP - General Family Medicine 01/31/18 Camelia Eagle PharmD [address] [place] [address] Pharmacist Internal Medicine [facility] documented as of this encounter
--- OUTSIDE RECORDS SUMMARY | 2025-03-13 17:52 | XMS_ITS | Encounter Summary ---
Author Organization [email or web address] Address [address] [place] [address] Care Team Providers Care Utility Agent Name Role Phone Name, Rob IBARRA Primary Care Provider [phone] Camelia Eagle PharmD Unavailable [phone] Reason for Visit * Reason Onset Date Comments FYI 06/07/2023 Encounter Details Date Type Department Care Team ([facility] st Contact Info) Description 06/07/2023 Telephone [facility] [address] [place], [place] [id number] Name, MD Rob [address] [place] [address] FYI Social History Tobacco Use Types Packs/Day [...] Telephone Encounter - Yasmeen Bliss RN - 06/11/2023 2:20 PM EST Incoming call from Devante CARMICHAEL Genoveva [phone] reporting INR today 1.8. States pt has only been taking 2.5 mg of coumadin daily as pt was not advised of coumadin orders. [facility] requesting orders and requesting that [facility] and pt's daughter Kaylan at [phone] be advise of orders as pt is forgetful. 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 Genoveva asking if pt can be switched back to Eliquis or referred to [facility]. Advised will return call with orders and send requestto pcp. * Telephone Encounter - Yasmeen Bliss RN - 06/07/2023 4:48 PM EST FYI re: start of home care with addition of PT noted. * Telephone Encounter - Lolly Sotomayor - 06/07/2023 2:21 PM EST Tc from genoveva with devante guerin calling to advise PCP pt has started home care services and will be adding physical therapy. documented in this encounter Plan of Treatment Upcoming Encounters Date Type Department Care Team (Late st Contact Info) Description 03/21/2025 2:00 PM EDT Medication Management [facility] [address] [place] [address] 03/21/2025 2:30 PM EDT Immunization [facility] [place] [address] 03/30/2025 2:00 PM EDT Telemedicine [facility] [address] Karen Marin RN 2025 9:00 AM EDT Medication Management [facility] [place] [address] Camelia Eagle PharmD [place] [facility] [place] [address] 04/20/2025 11:15 AM EDT Office Visit [facility] [place] [address] Name, [place] [address] documented as of this encounter Visit Diagnoses Not on filedocumented in this encounter Additional Health Concerns Assessment Noted Time PHQ-9 Depression Total Score: 13 023 1:47 PM EDT documented as of this encounter Care Teams Utility Agent Relationship Specialty Start Date End Date Name, [place] [address] PCP - General Family Medicine 01/31/18 [place] [address] Pharmacist Internal Medicine 11/22/24 [facility] 09/18/24 documented as of this encounter
--- OUTSIDE RECORDS SUMMARY | 2025-03-13 17:52 | XMS_ITS | Clinical Summary ---
Author Organization [employer] Address [address] [facility] [address] [place] [address] Care Team Providers Care Clerical Office Name Role Phone Name, Rob IBARRA Primary Care Provider [phone] Camelia Eagle PharmD Unavailable [phone] Allergies Active Allergy Reactions Criticality Noted Date Comments Aripiprazole 05/02/2013 Other reaction(s): Hyperglycemia Bupropion 03/03/2017 Citalopram 05/02/2013 Other reaction(s): Shortness of breath Morphine 05/02/2013 Other reaction(s): Rash/Hives/Itching Medications * This document contains information received from the source organization and may not represent a complete record from that organization. Blood Pressure Monitor kit Use to check BP daily and when symptomatic. 1 kit 023 Active Multiple Vitamin (multivitamin) tablet Take 1 tablet by mouth Once per day. 90 tablet 3 024 Active thiamine (Vitamin B-1) 100 MG tablet Take 1 tablet (100 mg) by mouth Once per day. 90 tablet 3 024 Active pantoprazole (ProtoNix) 40 MG EC tabletIndicati ons:Gastroesop hageal reflux disease, unspecified whether esophagitis present Take 1 tablet (40 mg) by mouth Once per day. 90 tablet 3 024 Active naloxone (Narcan) 4 mg/0.1 mL nasal sprayIndicatio ns:Chronic pain syndrome Administer 1 spray (4 mg) into affected nostril(s) if needed for opioid reversal. May repeat every 2-3 minutes if needed, alternating nostrils, until medical assistance becomes available. 2 each 3 2025 Active aspirin 81 MG chewable tablet Chew 1 tablet (81 mg) Once per day. 30 tablet 2025 Active docusate sodium (Colace) 100 MG capsule Take 1 capsule (100 mg) by mouth 2 times daily. 60 capsule 2025 Active gabapentin (Neurontin) 800 MG tablet TAKE 1 TABLET BY MOUTH THREE TIMES DAILY 90 tablet Active ketorolac (Acular) 0.5 % ophthalmic solution INSTILL 1 DROP IN THE AFFECTED EYE THREE TIMES DAILY. START 2 DAYS BEFORE SURGERY AND CONTINUE DIRECTED Active metFORMIN XR (Glucophage-XR ) 500 MG 24 hr tabletIndicati ons:Type 2 diabetes mellitus with hyperglycemia, with long-term current use of insulin (CMS/HCC) Take 1 tablet (500 mg) by mouth with evening meal. Do not crush, chew, or split. 30 tablet Active Continuous Glucose Sensor (FreeStyle Mahendra 2 Plus Sensor) misc 1 each every 8 (eight) hours. Apply 1 sensor every 15 days as directed for CGM. Continue to scan Q8H, at minimum, to capture 24 hr BG data. 2 each Active insulin pen needle 32G x 4 mm misc Use to inject insulin 4 times daily 200 each Active Continuous Glucose Metal Bonding Crib Attendant (FreeStyle Mahendra 2 [place]) device Use to scan sensor at least every 8 hours, as directed, for CGM 1 each Active Alcohol Swabs (Alcohol Prep) pads Use up to 4 times daily as directed 200 each Active TRUEplus Lancets 33G misc Use to test blood sugar up to 4 time(s) daily as directed 100 each Active glucagon (Baqsimi Two Pack) 3 MG/DOSE nasal powder Administer 3 mg via 1 device into the nostril for hypoglycemia with loss of consciousness. If no response after 15 minutes administer an additional dose via 2nd device into other nostril. 2 each Active glucose 4 g chewable tablet Chew 4 tablets (16 g) if needed for low blood sugar. <70 mg/dL. Repeat treatment as needed & as directed. 20 tablet 5 025 2025 Active glucose blood (FreeStyle Precision Dong Test) test stripIndicatio ns:Type 2 diabetes mellitus with hyperglycemia, with long-term current use of insulin (CMS/HCC) Use to test blood sugar up to 4 times daily, as directed 100 each Active ezetimibe (Zetia) 10 MG tablet Take 1 tablet (10 mg) by mouth in the morning. 90 tablet 3 025 2025 Active hydroxychloroq uine (Plaquenil) 200 MG tablet TAKE 1 TABLET BY MOUTH TWICE DAILY 180 tablet 025 Active Insulin Disposable Pump (Omnipod 5 Libre2 Plus G6) kitIndications :Type 2 diabetes mellitus with hyperglycemia, with long-term current use of insulin (CMS/HCC) 1 kit Once per day. For use with Omnipod 5 pods and Mahendra 2 plus sensors for daily insulin administration. 1 kit 025 Active atorvastatin (Lipitor) 80 MG tablet TAKE 1 TABLET BY MOUTH EVERY MORNING 90 tablet 025 Active senna (Senokot) 8.6 MG tablet TAKE 1 TABLET BY MOUTH TWICE DAILY IN THE MORNING AND AT BEDTIME NEEDED FOR CONSTIPATION 180 tablet 1 025 Active metoclopramide (Reglan) 10 MG tablet TAKE 1/2 TABLET BY MOUTH TWICE DAILY 30 tablet 025 Active Accu-Chek Softclix Lancets lancets Use to test blood sugar up to 4 time(s) daily as directed. 100 each 025 Active Blood Glucose Monitoring Suppl (Accu-Chek Guide) w/Device kit Use as directed to test blood sugar up to 4 times daily. 1 kit 025 Active glucose blood (Accu-Chek Guide Test) test strip Use to test blood sugar up to 4 times daily, as directed. 100 each 025 Active Insulin Disposable Pump (Omnipod 5 Libre2 Plus G6 Pods) miscIndication s:Type 2 diabetes mellitus with hyperglycemia, with long-term current use of insulin (CMS/HCC) USE DIRECTED, CHANGE 1 POD EVERY 72 HOURS. 2 each Active insulin degludec (Tresiba FlexTouch) 200 UNIT/ML injectionIndic ations:Type 2 diabetes mellitus with hyperglycemia, with long-term current use of insulin ([facility]) Inject 20 Units under the skin at bedtime. 9 mL Active insulin lispro (HumaLOG) 100 UNIT/ML injectionIndic ations:Type 2 diabetes mellitus with hyperglycemia, with long-term current use of insulin ([facility]) INJECT SUBCUTANEOUSLY THREE TIMES DAILY WITH MEALS PER SLIDING SCALE: BLOOD SUGAR < 150 = 0 UNITS, 151-200 = 15 UNITS, 201-251= 20 UNITS, 251-300 = 25 UNITS, 301-350 = 30 UNITS, >350 = 35 UNITS 15 mL Active Insulin Lispro (HumaLOG) 100 UNIT/ML solutionIndica tions:Type 2 diabetes mellitus with hyperglycemia, with long-term current use of insulin ([facility]) Inject 2 mL (200 Units) as directed every 3 (three) days. Use to fill Omnipod. 2 vials = 30d supply 20 mL Active oxyCODONE-acet aminophen (Percocet) 7.5-325 MG tabletIndicati ons:Chronic pain syndrome,PVD (peripheral vascular disease) ([facility]) Take 1 tablet by mouth every 6 (six) hours if needed for severe pain for up to 28 days. 112 tablet 025 2024 Active magnesium oxide (Mag-Ox) 400 (240 Mg) MG tablet TAKE 1 TABLET BY MOUTH TWICE DAILY IN THE MORNING AND AT BEDTIME 60 tablet Active DULoxetine (Cymbalta) [address] capsule TAKE 3 CAPSULES BY MOUTH EVERY DAY IN THE MORNING 90 capsule Active DULoxetine (Cymbalta) [address] capsule Take 3 capsules (90 mg) by mouth Once per day. Do not crush or chew. 90 capsule Active magnesium oxide (Mag-Ox) 400 (240 Mg) MG tablet Take 1 tablet (400 mg) by mouth 2 times daily. 30 tablet 2 Active insulin lispro (HumaLOG KWIKPEN) 100 UNIT/ML injection Inject three times daily with meals per SS: BG <150 = 0u, 151-200= 10u, 201-250=15u, 251-300= 20u, 301-350=25u, >350=30 units 15 mL 2 025 2024 Discontinued insulin degludec (Tresiba FlexTouch) 200 UNIT/ML injectionIndic ations:Type 2 diabetes mellitus with hyperglycemia, with long-term current use of insulin ([facility]) Inject 28 Units under the skin at bedtime. 9 mL 1 2024 Discontinued(R eorder (will not trigger notification to Pharmacy)) Insulin Disposable Pump (Omnipod 5 Libre2 Plus G6 Pods) miscIndication s:Type 2 diabetes mellitus with hyperglycemia, with long-term current use of insulin ([facility]) 1 Device Once per day. Use daily for insulin administration. Change pod every 72 hours, as directed. 2 each 2024 Discontinued Insulin Lispro (HumaLOG) 100 UNIT/ML solutionIndica tions:Type 2 diabetes mellitus with hyperglycemia, with long-term current use of insulin ([facility]) Inject 0.01 mL (1 Units) as directed Once per day. Use to fill Omnipod as directed. 1 vial = 28 d supply. 10 mL 2024 Discontinued(R eorder (will not trigger notification to Pharmacy)) oxyCODONE-acet aminophen (Percocet) 7.5-325 MG tabletIndicati ons:Chronic pain syndrome,PVD (peripheral vascular disease) ([facility]) Take 1 tablet by mouth every 6 (six) hours if needed for severe pain for up to 28 days. 112 tablet 2024 Discontinued(R eorder (will not trigger notification to Pharmacy)) DULoxetine (Cymbalta) [address] capsule TAKE 3 CAPSULES BY MOUTH EVERY DAY IN THE MORNING 90 capsule 2024 Discontinued magnesium oxide (Mag-Ox) 400 MG tablet TAKE 1 TABLET BY MOUTH TWICE DAILY IN THE MORNING AND AT BEDTIME 60 tablet 2024 Discontinued(D uplicate order (will not trigger notification to Pharmacy)) insulin lispro (HumaLOG) 100 UNIT/ML injection INJECT SUBCUTANEOUSLY THREE TIMES DAILY WITH MEALS PER SLIDING SCALE: BLOOD SUGAR < 150 = 0 UNITS, 151-200 = 10 UNITS, 201-251= 15 UNITS, 251-300 = 20 UNITS, 301-350 = 25 UNITS, >350 = 30 UNITS 15 mL 025 2024 Discontinued(R eorder (will not trigger notification to Pharmacy)) Blood Glucose Monitoring Suppl (Accu-Chek Guide) w/Device kit 2024 Discontinued(R eorder (will not trigger notification to Pharmacy)) glucose blood (Accu-Chek Guide Test) test strip 2024 Discontinued(R eorder (will not trigger notification to Pharmacy)) Accu-Chek Softclix Lancets lancets Use as instructed 2024 Discontinued(R eorder (will not trigger notification to Pharmacy)) magnesium oxide (Mag-Ox) 400 (240 Mg) MG tablet Take 400 mg by mouth 2 times daily. 025 2024 Discontinued Active Problems Problem Noted Date Diagnosed Date Long-term current use of opiate analgesic 2024 Preop examination 10/27/2024 Drug-induced constipation 10/06/2024 Above-knee amputee 07/14/2024 PAD (peripheral artery disease) 07/14/2024 Dementia 07/05/2024 Diabetic neuropathy 07/05/2024 Hemiparesis of right dominant side 07/05/2024 Insomnia 07/05/2024 Right groin wound 07/05/2024 Underweight 07/05/2024 Pressure injury of sacral region, unstageable Assessment & Plan (07/05/2024 3:26 PM EST): Will send antibiotic topical ointment for moisturization and to aid healing. Advised pt to maintain area moist for wound control, in addition to offloading. Left above-knee amputee 07/05/2024 Assessment & Plan (07/05/2024 12:30 PM EST): Site is clean, dry, and intact Phantom pain 03/30 will increase bedtime gabapentin from 600mg to 800mg Referral to pain management F/u with PCP scheduled 07/25/24 Chronic pain syndrome 07/05/2024 Assessment & Plan (07/05/2024 12:27 PM EST): Referred to pain management Other complications of amputation stump 06/02/20 Pressure ulcer of sacral region, unstageable Neuropathy 05/05/2024 Surgical wound present 04/26/2024 Hemiplegia affecting dominant side, post-stroke 03/03/2024 Moderate vascular dementia with mood disturbance 03/03/2024 Skin ulcer of sacrum 03/03/2024 Nasogastric tube present 03/03/2024 Adult failure to thrive 02/27/2024 Right above-knee amputee 06/21/2023 Dysphagia, unspecified 06/21/2023 Peripheral vascular angiopla sty status with implants and grafts 06/21/2023 Anemia, unspecified 06/21/2023 Unspecified dementia, unspec ified severity, with mood disturbance 06/21/2023 Encounter for fitting and adjustment of urinary device 06/21/2023 Unspecified severe protein-calorie malnutrition 06/21/2023 H/O lupus anticoagulant disorder 06/07/2023 Anticoagulated 06/07/2023 Systemic lupus erythematosus, unspecified 202207/06/2023 History of stroke with residual deficit 02/08/20 Overview (02/07/2023): CVA in December 2022: MRI demonstrated acute infarct in the left MCA territory ([facility]) Assessment & Plan (02/07/2023 5:08 PM EDT): Pt to continue with Xarelto and ASA Continue atorvastatin 80mg nightly with LDL goal <70 Pt completed rehab at [facility]. Continues with residual right sided deficits, referral to OP physical therapy at [facility] Peripheral vascular disease 12/25/2022 Overview (12/25/2022): Severe. [facility] (12/12/22-12/16/22) Patient presented with left lower limb ischemia, reporting pain in feet for several months. On presentation, had no Doppler pulses in left foot and had ischemic changes ti the tips of L2-4 toes. Started on heparin infusion with signs of improvement. Underwent RLE angiogram with SFA/AT plasty and mechanical thrombectomy with tPA administration. Tolerated procedure well. Seen by PT and recommended discharge home with services. T2DM (type 2 diabetes mellitus) 07/16/2022 Assessment & Plan (07/05/2024 2:20 PM EST): A1c at goal today <7.0 % Encouraged lean protein snacks and to avoid foods high in sugar and simple carbohydrates Treatment Goals: A1c goal: <7% FBG goal: <130 2 hour post prandial goal: <180 Assessment & Plan (07/16/2022 2:54 PM EST): Not controlled. Asymptomatic. 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 Chronic bilateral low back pain with bilateral s ciatica 10/05/2017 History of hysterectomy for benign disease 10/05 Positive YURI (antinuclear antibody) 03/09/2017 Cobalamin deficiency 10/01/2012 Uncontrolled type 2 diabetes mellitus with hyper glycemia 04/28/2012 Assessment & Plan (02/07/2023 5:21 PM EDT): Following with [facility] Dr. Barrios Continues with the following regimen: Tresiba 24 units daily Novolog 10 units TID AC Metformin XR 500mg BID Trulicity 1.5mg subcutaneous weekly (from endo) Lab Results Component Value Date HGBA1C 10.7 (A) 10/26/2022 -Stressed importance of BG and BP control in order to help prevent events such as IN and CVA. -Lifestyle interventions encouraged Benign hypertension 06/21/1959 Assessment & Plan (02/07/2023 5:12 PM EDT): Resumed home meds for hypertension and BP had been well controlled at home and in office, no known episodes of hypotension History of tachycardia. Per Rehab documentation, persistent tachycardia highest 116 bpm Continue metoprolol and Valsartan ED precautions Chronic obstructive lung disease 06/21/1959 Mood disorder 06/21/1959 Gastroesophageal reflux disease 06/21/1959 Tobacco dependence syndrome 06/21/1959 Resolved Problems Problem Noted Date Diagnosed Date Resolved Date Wound healing, delayed 07/05/202407/05 Wound infection after surgery 03/03/2024 07/05/2024 Left leg pain 12/11/2022 12/25/2022 Assessment & Plan (12/11/2022 2:25 PM EDT): I ordered STAT vascular and venous US patient will be contacted with results I advise if pain continues or worse or if she develops other concerning symtoms to go to ED Left leg swelling 12/11/2022 03/03/2024 Right leg pain 12/11/2022 12/25/2022 Low back pain radiating to right leg 07/16/2022 12/25/2022 Overview (07/16/2022): Reprinted xray order from PCP. Advised stop lyrica due to side effects. Pt does not want to restart gabapentin. Pt interested acupuncture clinc. F/u w/PCP Assessment & Plan (07/16/2022 2:55 PM EST): Reprinted xray order from PCP. Advised stop lyrica due to side effects. Pt does not want to restart gabapentin. Pt interested acupuncture clinc. F/u w/PCP Weight loss 07/16/2022 12/25/2022 Overview (07/16/2022): 05/12 Pt was 124lbs. 13lbs weight loss in 2 months, possibly secondary to uncontrolled dm. Will check TSH and CBC. Normal colonoscopy 2010. Assessment & Plan (07/16/2022 2:55 PM EST): 05/12 Pt was 124lbs. 13lbs weight loss in 2 months, possibly secondary to uncontrolled dm. Will check TSH and CBC. Normal colonoscopy 2010. Stage 3 chronic kidney disease 07/12/2019 03/03/2024 Encounters Date Type Department Care Team Description 03/08/2025 Refill [facility] [address], [place] [phone] Name, MD Rob 03/07/2025 Refill [facility] [address], [place] [phone] Rob Sunshine MD 03/05/2025 Refill [facility] [address] [place] [address] Rob Sunshine MD Chronic pain syndrome; PVD (peripheral vascular disease) (CMS/HCC) 02/28/2025 Travel 02/28/2025 Refill [facility] [address] [place] [address] Rob Sunshine MD Type 2 diabetes mellitus with hyperglycemia, with long-term current use of insulin (CMS/HCC) 02/20/2025 Telephone [facility] [address] [place] [address] Rob Sunshine MD Durable Medical Equipment 02/20/2025 Telephone [facility] [address] [place] [address] Puia, Camelia, PharmD 02/14/2025 Telephone [facility] [address] [place] [phone] Puia, Camelia, PharmD 02/14/2025 Refill [facility] [address] [place] [address] Puia, Camelia, PharmD 02/05/2025 Refill [facility] [address] [place] [address] Rob Sunshine MD 02/02/2025 Refill [facility] [address] [place] [address] Rob Sunshine MD 01/29/2025 Refill [facility] [address] [place] [address] Rob Sunshine MD Chronic pain syndrome; PVD (peripheral vascular disease) (CMS/HCC) 01/23/2025 11:00 AM EDT Office Visit [facility] [address] [place] [address] Rob Sunshine MD Type 2 diabetes mellitus with hyperglycemia, with long-term current use of insulin (CMS/[facility]) (Primary Dx); Encounter for screening for malignant neoplasm of breast, unspecified screening modality; Colonoscopy refused 01/10/2025 Refill [facility] [address] [place] [address] Rob Sunshine MD 01/05/2025 Telephone [facility] [address] [place] [address] Rob Sunshine MD 01/04/2025 Telephone [facility] [address] [place] [address] Puia Camelia, PharmD Appointment Request 12/31/2024 Refill [facility] [address] [place] [address] Rob Sunshine MD 12/28/2024 Telephone [facility] [address] [place] [address] Puia Camelia, PharmD 12/27/2024 Telephone [facility] [address] [place] [address] Puia Camelia, PharmD 12/26/2024 Refill [facility] [address] [place] [address] NameRob MD Chronic pain syndrome; PVD (peripheral vascular disease) ([facility]) 12/19/2024 Telephone [facility] [address] [place] [address] Puia Camelia, PharmD 12/14/2024 Refill [facility] [address], [place] [phone] Rob Sunshine MD from Last 3 Months Immunizations Immunization Administration Dates Next Due Influenza High-dose Quadriva lent Preservative Free 04/13/2023,04/22/2021 Influenza injectable quadriv alent IIV4 with preservative 03/09/2017,03/22/2015 Influenza injectable quadriv alent preservative free 06/13/2019,06/27/2018,06/30/2016 Influenza, High Dose Seasona l, Preservative Free 03/03/2024 Influenza, IIV3, injectable 04/13/2023,1 06/22/2020,06/13/2019,06/27,03/09/2017,06/30/2016,03/22/2015 ,05/19/2011 Influenza, Split (incl. kinjal fied surface antigen) 03/27/2013,04/28/2012 Moderna Covid-19 Vaccine 12+ 09/19/2021,08/24/19 21,07/26/2020 Pfizer Covid-19 Vaccine 12+ Bivalent 05/05/2022 Pneumococcal Conjugate PCV 20 02/24/2023 Pneumococcal Polysaccharide PPSV23 01/08/2004 TD (adult), 2 Lf tetanus tox oid, preservative free, adsorbed 01/21/2007 Td (adult), unspecified 01/21/2007 Tdap 04/25/2024,03/27/2013 Zoster, live 06/30/2016 Social History Tobacco Use Types Packs/Day Years Used Date Smoking Tobacco: Former Cigarettes Q uit: 06/21/2022 Tobacco Cessation:Counseling Given: Not Answered Alcohol Use Standard Drinks/Week Comments Never 0 [...] Orientation Straight 04/20/2022 10 :17 AM EDT Last Filed Vital Signs Vital Sign Reading Time Taken Comments Blood Pressure 118/56 01/23/2025 11:20 AM EDT Pulse 91 01/23/2025 11:20 AM EDT Temperature 36.7 C (98 F) 01/23/2025 11:20 AM EDT Respiratory Rate 14 01/23/2025 11:20 AM EDT Oxygen Saturation 96% 01/23/2025 11:20 AM EDT Inhaled Oxygen Concentration - - Weight 45.3 kg (99 lb 14.4 oz) 01/23/2025 11:20 AM EDT Height 152.4 cm (5') 06/18/2023 10:02 AM EST Body Mass Index 19.51 06/18/2023 10:02 AM EST Plan of Treatment Upcoming Encounters Date Type Department Care Team (Late st Contact Info) Description 03/21/2025 2:00 PM EDT Medication Management [address] [phone] Camelia Eagle, PharmD [address] [place] [phone] 03/21/2025 2:30 PM EDT Immunization [address] [phone] 03/30/2025 2:00 PM EDT Telemedicine [address] [address] Karen Marin, LETICIA 2025 9:00 AM EDT Medication Management [address] [address] Camelia Eagle, PharmD [address] [place] [address] 04/20/2025 11:15 AM EDT Office Visit [address] [address] Name, MD Rob [address] [place] [id number] Health Maintenance Due Date Last Done Comments CT Colonography 1956 Colonoscopy 1956 Colorectal Cancer Screening 1956 Dental Prophylaxis 1956 Dental X-Ray: Bitewings 1956 FIT DNA/Cologuard 1956 FIT 1956 FOBT 1956 Sigmoidoscopy 1956 RSV Patients and Patients Aged 60 years or older (1 - Risk 60-74 years 1-dose series) 2016 Zoster Vaccines (2 of 3) 08/25/2016 06/30/2016 Mammogram 05/22/2023 05/22/2021 Dental Oral Exam 08/12/2023 02/08/2023 COVID-19 Vaccine ( - season) 2025 05/05/2022, 09/19/2021, 08/23/2020, Additional history exists Influenza Vaccine (#1) 2025 , 04/13/2023, 04/13/2023, Additional history exists Diabetes: Hemoglobin A1C 04/25/2025 025, 10/27/2024, 07/25/2024, Additional history exists Depression Monitoring 04/29/2025 10/27/2024, 023 Lipid Panel 07/25/2025 07/25/2024, 06/0 06/2022, 08/06/2021, Additional history exists Diabetes: Urine Protein Screening 11/22/2025 11/22/2024, 12/20/2021, 09/09/2020, Additional history exists Alcohol/Substance Use Screening 01/23/2026 01/23/2025 SDOH Screening 01/23/2026 01/23/2025 Tobacco Screening 01/23/2026 01/23/2025 Dental X-Ray: Full Mouth 02/09/2026 02/08/2023 Eye Exam 08/16/2026 08/16/2024, 07/23, 08/16/2024, Additional history exists DTaP/Tdap/Td Vaccines (3 - Td or Tdap) 04/25/2034 04/25/2024, 03/27/2013, 01/21/2007, Additional history exists Hepatitis C Screening Completed 07/11/2019 Pneumococcal Vaccine: 50+ Years Completed 02/24/2023, 01/08/2004 Diabetes: Foot Exam Discontinued HIB Vaccines Aged Out No longer eligi ble based on patient's age to complete this topic HPV Vaccines Aged Out No longer eligi ble based on patient's age to complete this topic Hepatitis A Vaccines Aged Out No long er eligible based on patient's age to complete this topic Hepatitis B Vaccines Aged Out No long er eligible based on patient's age to complete this topic IPV Vaccines Aged Out No longer eligi ble based on patient's age to complete this topic Meningococcal B Vaccine Aged Out No l onger eligible based on patient's age to complete this topic Meningococcal Vaccine Aged Out No sulema michael eligible based on patient's age to complete this topic RSV under 20 months Aged Out No longe r eligible based on patient's age to complete this topic Rotavirus Vaccines Aged Out No longer eligible based on patient's age to complete this topic Goals Goal Patient Goal Type Associated Problems Recent Progress Patient-Stated? Author Blood Pressure < 140/90 Blood Pressure 118/56(2024 11:20 AM EDT) No Shirley Cooper, Chacha Note: Keep log of BP values to be reviewed at follow-up or sooner if needed. Take your medication every day Lifestyle No Shirley Cooper PharmD Procedures Procedure Name Priority Date/Time Associated Diagnosis Comments POCT GLYCATED HEMOGLOBIN, TOTAL Routine 01/23/2025 11:22 AM EDT Type 2 diabetes mellitus with hyperglycemia, with long-term current use of insulin ([facility]) POCT GLUCOSE Routine 01/23/2025 11:21 AM EDT Type 2 diabetes mellitus with hyperglycemia, with long-term current use of insulin ([facility]) ALBUMIN, RANDOM URINE W/CREATININE Routine 11/22/2024 2:46 PM EDT LIPID PANEL, STANDARD Routine 07/25/2024 12:08 PM EST Type 2 diabetes mellitus with hyperglycemia, with long-term current use of insulin (CMS/HCC) Malnutrition, unspecified type (CMS/HCC) Chronic pain syndrome On statin therapy PANORAMIC RADIOGRAPHIC IMAGE Routine 02/08/2023 10:30 AM EDT COMPREHENSIVE ORAL EVALUATION - NEW OR ESTABLISHED PATIENT Routine 02/08/2023 10:30 AM EDT BI MAMMOGRAM SCREENING BILATERAL Routine 05/22/2021 10:00 AM EST [facility] HISTORICAL HEPATITIS A,B,C PROFILE Routine 07/11/2019 4:57 PM EST from Last 3 Months or Most Recently Relevant to Health Maintenance Results * (ABNORMAL) POCT HGB A1C (01/23/2025 11:22 AM EDT) Hemoglobin A1C 8.6(A) 4.0 - 5.7 % QC Media Lot # [id number] Lot# Expiration Date Blood 01/23/2025 11:2 2 AM EDT Rob Sunshine MD POINT OF CARE TEST ENTER/EDIT OR DERABLES Final Result * (ABNORMAL) POCT Glucose (01/23/2025 11:21 AM EDT) Glucose Blood, POC 403(A) 60 - 200 mg/dL QC Media Lot # [id number] Lot# Expiration Date 025 Blood Capillary blood specimen / Unknown 01/23/2025 11:21 AM EDT Rob Sunshine MD POINT OF CARE TEST ENTER/EDIT OR DERABLES Final Result * (ABNORMAL) Albumin, Random Urine W/Creatinine (11/22/2024 2:46 PM EDT) Creatinine, Urine 45.81 mg/dL [facility] Microalbumin Urine 16.0 mg/L H [facility] Microalbum Creatinine Ratio Ur 34.9(H) <30 ug/mg cr [facility] Comment:Albumin/Creatinine R atio Reference Ranges: Normal: < 30 ug/mg creatinine Microalbuminuria: 30 - 300 ug/mg creatinineClinical Albuminuria: > 300 ug/mg creatinine 11/22/2024 2:46 PM EDT 11/22/2024 4:01 PM EDT us Rob Sunshine MD LAB URINE ORDERABLES Final Resul t Performing Organization Address [facility] Co de Phone Number [facility] [address] [place] [phone] * (ABNORMAL) Lipid Panel, Standard (07/25/2024 12:08 PM EST) Triglycerides 93 <150 mg/dL [facility] Comment:Desirable Triglyceri de: less than 150 mg/dLBorderline High Triglyceride 150-199 mg/dLHigh Triglyceride: 200-499 mg/dLVery High Triglyceride: greater than or equal to 5OO mg/dL Cholesterol 147 <200 mg/dL [facility] Comment:Desirable Cholestero l: less than 200 mg/dLBorderline High Cholesterol: 200-239 mg/dLHigh Cholesterol: greater than 239 mg/dL LDL Cholesterol Calculated 89 <100 mg/dL [facility] Comment:Desirable LDL: less than 100 mg/dLNear Optimal/Above Optimal LDL: 110- 129 mg/dLBorderline High LDL: 130-159 mg/dLHigh LDL: 160-189 mg/dLVery High LDL: greater than or equal to 190 mg/dL HDL Cholesterol 40(L) >40 mg/dL [facility] Comment:Desirable HDL: great er than 40 mg/dL Note: This HDL assay may give artificially low results in patients with liver disease. Blood Venous blood specimen / Unknown 07/25/2024 12:08 PM EST 07/25/2024 1:11 PM EST us Rob Sunshine MD LAB BLOOD ORDERABLES Final Resul t Performing Organization Address [facility]/ZIP Co de Phone Number [facility] [address] [place] [phone] * Req: Mammogram (Screening); Bilateral (05/22/2021 10:00 AM EST) Anatomical Region Laterality Modality Breast Bilateral Mammography 05/22/2021 10:0 0 AM EST Narrative 05/22/2021 10:01 AM EST Refer to the Notes tab for result details [facility] Procedure: Req: Mammogram (Screening); Bilateral Procedure Note Provider, MD Moon - 09/13/2022 Refer to the Notes tab for result details [facility] Procedure: Req: Mammogram (Screening); Bilateral us Rob Name MD CAMACHO BI PROCEDURES Final Result * (ABNORMAL) HEPATITIS A,B,C PROFILE (07/11/2019 4:57 PM EST) HEPATITIS B CORE ANTIBODY NONREACTIVE NONREACTIVE [facility] HEPATITIS B INTERPRETATION SEE NOTE [facility] Comment: Consistent with Hepatitis B immunization or recovery and immunity from Hepatitis B infection. HEPATITIS B SURFACE ANTIBODY REACTIVE NONREACTIVE [facility] Comment: REACTIVE: > 11.99 mIU/mL HEPATITIS B SURFACE ANTIGEN NEGATIVE NEGATIVE [facility] HEPATITIS C ANTIBODY REACTIVE(AA) NONREACTIVE [facility] Comment:Presumptive evidence of antibodies to HCV. 07/11/2019 4:57 PM EST Historical Provider HISTORICAL/NON ORDERABLE LABS Final Result [facility] [address] from Last 3 Months or Most Recently Relevant to Health Maintenance Insurance [facility] MEDICARE ADVANTAGE HMO Care Teams Clerical Office Relationship Specialty Start Date End Date Name, MD Rob [address] [place] [address] PCP - General Family Medicine 01/31/18 Puia, Chacha Denise [address] [place] [phone] Pharmacist Internal Medicine 11/22/24 [facility] 09/18/24
--- OUTSIDE RECORDS SUMMARY | 2025-03-13 17:52 | XMS_ITS | Encounter Summary ---
Author Organization [employer] Address [address] [place] [address] Care Team Providers Care Occupational Health Nurse Manager Name Role Phone Name, Rob IBARRA Primary Care Provider [phone] Camelia Eagle PharmD Unavailable [phone] Reason for Visit * Reason Comments Med Refill Encounter Details Date Type Department Care Team (Late st Contact Info) Description 04/24/2024 Refill [facility] [address] [place] [address] Name, MD Rob [address] [place] [address] Pressure injury of sacral region, unstageable (CMS/HCC) Social History Tobacco Use Types Packs/Day [...] is your housing situation today? I have chasityjenelle snow 02/18/[address] you [...] Description 03/21/2025 2:00 PM EDT Medication Management [facility] [address] [place] [phone] Camelia Ealge PharmD [address] [place] [phone] 03/21/2025 2:30 PM EDT Immunization [address] [phone] 03/30/2025 2:00 PM EDT Telemedicine [address] [address] Karen Marin, RN 2025 9:00 AM EDT Medication Management [address] [address] Camelia Eagle PharmD [address] [place] [phone] 04/20/2025 11:15 AM EDT Office Visit [address] [address] NameRob MD [address] [place] [address] documented as of this encounter Goals Goal Patient Goal Type Associated Problems Recent Progress Patient-Stated? Author Blood Pressure < 140/90 Blood Pressure 118/56(2024 11:20 AM EDT) Shirley Neal, Chacha Note: Keep log of BP values to be reviewed at follow-up or sooner if needed. Take your medication every day Lifestyle No Shirley Cooper, PharmD documented as of this encounter Visit Diagnoses Diagnosis Pressure injury of sacral region, unstageable (CMS/[facility]) documented in this encounter Additional Health Concerns Assessment Noted Time PHQ-9 Depression Total Score: 23 023 11:06 AM EST documented as of this encounter Care Teams Occupational Health Nurse Manager Relationship Specialty Start Date End Date Name, MD Rob [address] [place] [address] PCP - General Family Medicine 01/31/18 Camelia Eagle PharmD [address] [place] [address] Pharmacist Internal Medicine [facility] documented as of this encounter
--- OUTSIDE RECORDS SUMMARY | 2025-03-13 17:52 | XMS_ITS | Encounter Summary ---
Author Organization [employer] Address [address] [place] [address] Care Team Providers Care Pari Mutuel Clerk Name Role Phone Name, Rob IBARRA Primary Care Provider [phone] Camelia Eagle PharmD Unavailable [phone] Reason for Visit * Reason Comments Med Refill Encounter Details Date Type Department Care Team (Late st Contact Info) Description 03/07/2025 Refill [facility] [address] [place], [place] [phone] Name, MD Rob [address] [place] [address] Social History Tobacco Use Types Packs/Day Years [...] 2:00 PM EDT Medication Management [facility] MED[facility]INE [address] [place] [phone] Camelia Eagle PharmD [address] [place] [phone] 03/21/2025 2:30 PM EDT Immunization [address] [address] 03/30/2025 2:00 PM EDT Telemedicine [address] [address] Karen Marin, RN 2025 9:00 AM EDT Medication Management [address] [address] Camelia Eagle PharmD [address] [place] [phone] 04/20/2025 11:15 AM EDT Office Visit [address] [address] Name, MD Rob [address] [place] [phone] documented as of this encounter Goals Goal [...] documented as of this encounter Care Teams Pari Mutuel Clerk Relationship Specialty Start Date End Date Name, MD Rob [address] [place] [address] PCP - General Family Medicine 01/31/18 Camelia Eagle PharmD [address] [place] [address] Pharmacist Internal Medicine 11/22/24 [facility] 09/18/24 documented as of this encounter
== END 2025-03-13 14:42 | disposition home or self-care (01) ==
LOC: HO.MAMMO 14:41
PROVIDERS: PCP Internal Medicine Geriatric Medicine; Visit Provider Internal Medicine Geriatric Medicine
DX: Z12.31 Encounter for screening mammogram for malignant neoplasm of breast (principal)
CPT/HCPCS: 77063; 77067

== ENCOUNTER → 2025-03-13 14:45 | Outpatient (BNV) | payer MEDICARE, SELFPAY | PROVIDERS: PCP Internal Medicine Geriatric Medicine; Visit Provider Internal Medicine | DX: Z12.31 Encounter for screening mammogram for malignant neoplasm of breast (principal) | CPT/HCPCS: 77063; 77067 ==